=== PATIENT | female | born 1955 | race Caucasian/White ===

== ENCOUNTER 2018-07-22 16:25 | Inpatient (IN) ==
--- NOTE | 2018-07-22 18:05 | Emergency Department Note ---
Disposition Clinical Impression: Acute kidney injury Cellulitis Qualifiers: Site of cellulitis: extremity Site of cellulitis of extremity: lower extremity Laterality: left Qualified Code(s): L03.116 - Cellulitis of left lower limb DVT (deep venous thrombosis) Qualifiers: DVT location: lower extremity Affected thrombotic vein of extremity: iliac Chronicity: unspecified Laterality: left Qualified Code(s): I82.422 - Acute embolism and thrombosis of left iliac vein Disposition: Admitted As Inpatient Condition: Good Referrals: Joaquim Nesbitt MD [Primary Care Provider] - Forms: ED Satisfaction Letter Lower Extremity Injury HPI - General Chief Complaint: ED Extremity Injury, Lower Stated Complaint: DVT Time Seen by Provider: 07/22/18 17:42 Source: patient, family Limitations: no limitations Nursing Notes Reviewed: Yes Vital Signs Reviewed: Yes - History of Present Illness HPI Narrative: 62-year-old female with past medical history including crush injury of the left lower extremity with Tete filter placed in the , presenting with chief complaint of erythema and swelling of her left knee since yesterday. Patient states a week ago she had a fall. She has a drop foot and her left leg from a crush injury and she hit a cement step and fell hitting her left knee. She went to her primary care physician secondary to swelling. Left tib-fib x- rays were negative for fracture or dislocation. She did have lower extremity venous Doppler that was positive for acute partially occlusive thrombus in the left distal iliac and left lesser saphenous veins. She was started on Xarelto which she states her compliance. She states for the last couple days she complains of chills and sweats. She also complains of increasing left knee pain. This morning she woke up with erythema and worsening swelling of the left knee. Patient's states that when she came down for breakfast she was feeling out of it and was dropping things with bilateral upper extremities. No slurred speech or facial droop. No unilateral weakness or paresthesias. She went back to sleep for a couple of hours and symptoms resolved. She saw her primary care physician who recommended the patient come to the ER for further evaluation. Patient denies abrasions, recent bites, chest pain, shortness of breath, nausea, vomiting. She does states she was recently diagnosed with acute bronchitis and was treated with a Z-Vincent and Solu-Medrol. - Related Data Home Medications Medication Instructions Recorded Confirmed Calcium Carbonate/Vitamin D3 1,000 mg PO DAILY 05/06/15 03/06/18 [Calcium 500 mg Chewable Tablet] Citalopram Hydrobromide 40 mg PO DAILY 05/06/15 03/06/18 [Citalopram HBr] Levothyroxine [Synthroid] 112 mcg PO DAILY 05/06/15 03/06/18 Omeprazole [PriLOSEC] 20 mg PO BID PRN 05/06/15 03/06/18 Gabapentin [Neurontin] 300 mg PO TID 04/01/16 03/06/18 Lidocaine Patch [Lidoderm 5% patch] 1 each TP Q12H PRN 04/01/16 03/06/18 Cyclobenzaprine HCl 5 mg PO TID PRN 02/07/17 03/06/18 Pravastatin Sodium [Pravachol] 20 mg PO DAILY 02/07/17 03/06/18 Vitamin B Complex [B Complex] 1 tab PO DAILY 02/07/17 03/06/18 Doxepin HCl 10 mg PO DAILY 03/06/18 03/06/18 Fluticasone Propionate Nasal 50 mcg NS DAILY PRN 03/06/18 03/06/18 [Flonase] Metformin HCl [Metformin ER 500 mg PO BID 03/06/18 03/06/18 Gastric] Previous Rx's Medication Instructions Recorded Oxycodone HCl/Acetaminophen 1 each PO Q6HR 3 Days #12 tablet 03/06/18 [Percocet 5-325 mg Tablet] Allergies Allergy/AdvReac Type Severity Reaction Status Date / Time codeine AdvReac Hives Verified 07/22/18 17:57 All systems ED: reviewed and negative except as stated. Review of Systems: As Per HPI Constitutional: Reports: fever, chills Cardiovascular: Denies: chest pain, palpitations Respiratory: Denies: cough, dyspnea Gastrointestinal: Denies: abdominal pain, nausea, diarrhea Genitourinary: Denies: dysuria Musculoskeletal: Reports: other (left knee pain and swelling). Denies: back pain Neurological: Reports: confusion. Denies: headache, weakness, paresthesias Past Medical History - Past Medical History Medical history: Reports: COPD, DVT, thyroid disease, other Surgical history: Reports: hysterectomy, other Psychiatric history: Reports: anxiety, depression, panic disorder PHLEBOTOMIST ASSOCIATE history: Reports: no PHLEBOTOMIST ASSOCIATE history - Social History Smoking Status: Current every day smoker Smokeless Tobacco Status: No Alcohol use: Reports: none Drug use: Reports: none Physical Exam - General Limitations: no limitations General appearance: alert, in no apparent distress - Head Head exam: atraumatic, normocephalic - Eye Eye exam: Present: normal appearance, PERRL, EOMI - ENT ENT exam: normal exam, normal oropharynx, mucous membranes moist - Neck Neck exam: Present: normal inspection, trachea midline - Chest Chest inspection: Present: normal inspection, symmetric chest wall rise - Respiratory Respiratory exam: Present: normal lung sounds bilaterally. Absent: respiratory distress, wheezes - Cardiovascular Cardiovascular exam: Present: regular rate, normal rhythm, normal heart sounds, other (bilateral dorsalis pedis pulses palpable and equal) - Abdominal Exam Abdominal exam: Present: soft, Non-Tender. Absent: distention - Extremities Exam Extremities exam: Present: normal capillary refill, other (left knee with blanching erythema, hot to touch. Moderate swelling with tenderness. ) - Neurological Exam Neurological exam: Present: alert, oriented X3, CN II-XII intact. Absent: motor sensory deficit - Expanded Neurological Exam Speech: Present: fluid speech Cerebellar function: finger to nose: Normal Motor strength - LUE: 5/5 Motor strength - RUE: 5/5 Motor strength - LLE: 5/5 Motor strength - RLE: 5/5 Upper motor neuron exam: yessi neglect: Absent bilaterally Sensory exam upper extremity: light touch: Normal Sensory exam lower extremity: light touch: Normal - Psychiatric Psychiatric exam: Present: normal affect, normal mood - Skin Skin exam: Present: dry, intact Course Vital Signs Temperature 99.7 F H 07/22/18 16:42 Pulse Rate 84 07/22/18 16:42 Respiratory Rate 14 07/22/18 16:42 Blood Pressure 104/64 07/22/18 16:42 O2 Sat by Pulse Oximetry 94 07/22/18 16:42 Temperature 99.7 F H 07/22/18 16:42 Pulse Rate 82 07/22/18 17:56 Respiratory Rate 20 07/22/18 17:56 Blood Pressure 112/69 07/22/18 17:56 O2 Sat by Pulse Oximetry 95 07/22/18 17:56 Oxygen Delivery Oxygen Delivery Room Air Extremity Injury, Lower - MDM Narrative Medical decision making narrative: Patient with diagnosis of DVT one week ago who is now on Xarelto. Couple day history of chills and sweats and 2 day history of worsening left lower extremity swelling and erythema to the left knee. The knee has blanching erythema and is very hot to touch compared to the other extremity. Dorsalis pedis pulse is palpable. 2+ pitting edema of the left lower extremity. Concern for cellulitis. We obtain lower extremity Doppler to reevaluate for any new DVT or progressive worsening of her distal iliac clot. She does have worsening symptoms with worsening swelling and pain. There is also concern as she has a distal iliac DVT and will require further evaluation. We will also obtain lactate, blood cultures, CBC and BMP,PT/INR. We will also obtain CT head without contrast to evaluate her confusion that she had this morning and to rule out an intracranial hemorrhage to anticoagulate the patient. 19:45 Labs and imaging reviewed. X-ray shows nonspecific soft tissue edema most pronounced within the lateral and prepatellar soft tissues which is concerning for cellulitis. No acute osseous abnormality. CT head shows remote ischemic infarcts. She had a remote TBI many years ago. Lower extremity Doppler shows unchanged DVTs. Elevated white blood count of 27. Lactate is normal. Will give IV vancomycin. We will initiate IV fluids as she has acute kidney injury as well. We will admit the patient. Do not suspect the patient's knee requires arthrocentesis at this time as there is erythema and cellulitis and soft tissue swelling however no loculated area of fluid collection. CRP elevated at 291. We will consult hospitalist for admission. 20:00 Discussed with Hospitalist, Dr. Figueredo, who accepts admission. Will add zosyn to patient's antibiotic therapy. - Medical Records Medical records reviewed: Yes I reviewed the patient's medical records. - Lab Data Lab results reviewed: Yes I reviewed the patient's lab results. Result diagrams: 07/22/18 18:40 07/22/18 18:40 Lab Results 07/22/18 07/22/18 07/22/18 Range/Units 18:40 18:40 18:40 WBC 27.2 H (4.3-11.1) K/mcL RBC 3.94 (3.82-4.97) M/mcL Hgb 12.5 (11.5-15.4) g/dL Hct 36.9 (35.3-44.9) % MCV 93.7 (83.0-100.0) fL MCH 31.7 (28.0-33.3) pg MCHC 33.9 (31.6-35.5) g/dL RDW 14.5 (11.5-14.5) % Plt Count 171 (140-400) K/mcL MPV 10.8 (9.4-12.4) fL Immature Gran % 1.0 (0-4) % Seg Neutrophils % 82.9 % Lymphocytes % 10.2 % Monocytes % 5.6 % Eosinophils % 0.1 % Basophils % 0.2 % Neutrophils # 22.6 H (1.6-8.9) K/mcL Lymphocytes # 2.8 (0.6-4.6) K/mcL Monocytes # 1.5 H (0.0-1.3) K/mcL Eosinophils # 0.0 (0.0-0.6) K/mcL Basophils # 0.1 (0.0-0.2) K/mcL Platelet Estimate Normal (Normal) PT (9.4-12.1) Seconds INR APTT (26.0-36.0) Seconds Sodium 134 L (136-145) mEq/L Potassium 3.7 (3.5-5.1) mEq/L Chloride 96 L (98-107) mEq/L Carbon Dioxide 28 (23-29) mEq/L BUN 26 H (8-23) mg/dL Creatinine 1.35 H (0.60-1.20) mg/dL Est GFR ( Amer) 48 L (> 60) Est GFR (Non-Af Amer) 40 L (> 60) BUN/Creatinine Ratio 19 (6-26) Glucose 143 H (70-105) mg/dL Calculated Osmolality 285 (280-300) Lactic Acid 1.6 (0.5-2.2) mmol/L Calcium 9.4 (8.6-10.3) mg/dL C-Reactive Protein 291 H (Less than 10) mg/L 07/22/18 Range/Units 18:40 WBC (4.3-11.1) K/mcL RBC (3.82-4.97) M/mcL Hgb (11.5-15.4) g/dL Hct (35.3-44.9) % MCV (83.0-100.0) fL MCH (28.0-33.3) pg MCHC (31.6-35.5) g/dL RDW (11.5-14.5) % Plt Count (140-400) K/mcL MPV (9.4-12.4) fL Immature Gran % (0-4) % Seg Neutrophils % % Lymphocytes % % Monocytes % % Eosinophils % % Basophils % % Neutrophils # (1.6-8.9) K/mcL Lymphocytes # (0.6-4.6) K/mcL Monocytes # (0.0-1.3) K/mcL Eosinophils # (0.0-0.6) K/mcL Basophils # (0.0-0.2) K/mcL Platelet Estimate (Normal) PT 18.6 H (9.4-12.1) Seconds INR 1.7 APTT 27.5 (26.0-36.0) Seconds Sodium (136-145) mEq/L Potassium (3.5-5.1) mEq/L Chloride (98-107) mEq/L Carbon Dioxide (23-29) mEq/L BUN (8-23) mg/dL Creatinine (0.60-1.20) mg/dL Est GFR ( Amer) (> 60) Est GFR (Non-Af Amer) (> 60) BUN/Creatinine Ratio (6-26) Glucose (70-105) mg/dL Calculated Osmolality (280-300) Lactic Acid (0.5-2.2) mmol/L Calcium (8.6-10.3) mg/dL C-Reactive Protein (Less than 10) mg/L - Radiology Data Radiology results reviewed: Yes I reviewed the patient's radiology results. Head CT 07/22/18 18:32 IMPRESSION: Multiple remote infarcts as above. No acute disease. D/ / Tam Sepulveda MD / Tam Sepulveda MD Interpreting Provider: Tam Sepulveda MD Knee X-Ray 07/22/18 18:53 IMPRESSION: 1. Nonspecific soft tissue edema most pronounced within the lateral and prepatellar soft tissues. Correlate clinically for cellulitis. 2. No acute osseous abnormality identified. D/ / Hiram Henderson MD / Hiram Henderson MD Interpreting Provider: Hiram Henderson MD
--- NOTE | 2018-07-22 18:48 | Emergency Department Note ---
Disposition Clinical Impression: Acute kidney injury Cellulitis Qualifiers: Site of cellulitis: extremity Site of cellulitis of extremity: lower extremity Laterality: left Qualified Code(s): L03.116 - Cellulitis of left lower limb DVT (deep venous thrombosis) Qualifiers: DVT location: lower extremity Affected thrombotic vein of extremity: iliac Chronicity: unspecified Laterality: left Qualified Code(s): I82.422 - Acute embolism and thrombosis of left iliac vein Disposition: Admitted As Inpatient Referrals: Joaquim Nesbitt MD [Primary Care Provider] - Forms: ED Satisfaction Letter General Adult HPI - General Chief complaint: ED Extremity Injury, Lower Stated complaint: DVT Time Seen by Provider: 07/22/18 17:42 Source: patient, family Limitations: no limitations - History of Present Illness Pain Scale: 8 - Related Data Home Medications Medication Instructions Recorded Confirmed Calcium Carbonate/Vitamin D3 1,000 mg PO DAILY 05/06/15 03/06/18 [Calcium 500 mg Chewable Tablet] Citalopram Hydrobromide 40 mg PO DAILY 05/06/15 03/06/18 [Citalopram HBr] Levothyroxine [Synthroid] 112 mcg PO DAILY 05/06/15 03/06/18 Omeprazole [PriLOSEC] 20 mg PO BID PRN 05/06/15 03/06/18 Gabapentin [Neurontin] 300 mg PO TID 04/01/16 03/06/18 Lidocaine Patch [Lidoderm 5% patch] 1 each TP Q12H PRN 04/01/16 03/06/18 Cyclobenzaprine HCl 5 mg PO TID PRN 02/07/17 03/06/18 Pravastatin Sodium [Pravachol] 20 mg PO DAILY 02/07/17 03/06/18 Vitamin B Complex [B Complex] 1 tab PO DAILY 02/07/17 03/06/18 Doxepin HCl 10 mg PO DAILY 03/06/18 03/06/18 Fluticasone Propionate Nasal 50 mcg NS DAILY PRN 03/06/18 03/06/18 [Flonase] Metformin HCl [Metformin ER 500 mg PO BID 03/06/18 03/06/18 Gastric] Previous Rx's Medication Instructions Recorded Oxycodone HCl/Acetaminophen 1 each PO Q6HR 3 Days #12 tablet 03/06/18 [Percocet 5-325 mg Tablet] Allergies Allergy/AdvReac Type Severity Reaction Status Date / Time codeine AdvReac Hives Verified 07/22/18 17:57 Past Medical History - Past Medical History Medical history: Reports: COPD, DVT, thyroid disease, other Surgical history: Reports: hysterectomy, other Psychiatric history: Reports: anxiety, depression, panic disorder FACULTY SUPPORT COORDINATOR history: Reports: no FACULTY SUPPORT COORDINATOR history - Social History Smoking Status: Current every day smoker Smokeless Tobacco Status: No Alcohol use: Reports: none Drug use: Reports: none Physical Exam - General Limitations: no limitations General appearance: alert, in no apparent distress Course Vital Signs Temperature 99.7 F H 07/22/18 16:42 Pulse Rate 84 07/22/18 16:42 Respiratory Rate 14 07/22/18 16:42 Blood Pressure 104/64 07/22/18 16:42 O2 Sat by Pulse Oximetry 94 07/22/18 16:42 Temperature 99.7 F H 07/22/18 16:42 Pulse Rate 82 07/22/18 17:56 Respiratory Rate 20 07/22/18 17:56 Blood Pressure 112/69 07/22/18 17:56 O2 Sat by Pulse Oximetry 95 07/22/18 17:56 Oxygen Delivery Oxygen Delivery Room Air Medical Decision Making - MDM Narrative Medical decision making narrative: Concerns for a left knee cellulitis. Elevated white count greater than 20,000. We have ordered IV vancomycin and blood cultures. We repeated a duplex Doppler of the left lower extremity to be sure that the clot has not propagated from the iliac vein. There is been no movement or change with this. Obviously at this point where more concerned for a cellulitis. The anterior left knee and lateral portion her also red to touch. It appears that this is more superficial based on physical exam findings. She is able to move the knee but states it feels tight secondary to the swelling on the anterior portion of the knee. Left knee plain films were unremarkable for any acute fracture. We did do a CT of her head secondary to this confusion this morning and that was also nonacute. Patient will be admitted to the hospitalist. - Medical Records Medical records reviewed: Yes I reviewed the patient's medical records. - Lab Data Lab results reviewed: Yes I reviewed the patient's lab results. Result diagrams: 07/22/18 18:40 07/22/18 18:40 Lab Results 07/22/18 07/22/18 07/22/18 Range/Units 18:40 18:40 18:40 WBC 27.2 H (4.3-11.1) K/mcL RBC 3.94 (3.82-4.97) M/mcL Hgb 12.5 (11.5-15.4) g/dL Hct 36.9 (35.3-44.9) % MCV 93.7 (83.0-100.0) fL MCH 31.7 (28.0-33.3) pg MCHC 33.9 (31.6-35.5) g/dL RDW 14.5 (11.5-14.5) % Plt Count 171 (140-400) K/mcL MPV 10.8 (9.4-12.4) fL Immature Gran % 1.0 (0-4) % Seg Neutrophils % 82.9 % Lymphocytes % 10.2 % Monocytes % 5.6 % Eosinophils % 0.1 % Basophils % 0.2 % Neutrophils # 22.6 H (1.6-8.9) K/mcL Lymphocytes # 2.8 (0.6-4.6) K/mcL Monocytes # 1.5 H (0.0-1.3) K/mcL Eosinophils # 0.0 (0.0-0.6) K/mcL Basophils # 0.1 (0.0-0.2) K/mcL Platelet Estimate Normal (Normal) ESR (0-15) mm/hr PT (9.4-12.1) Seconds INR APTT (26.0-36.0) Seconds Sodium 134 L (136-145) mEq/L Potassium 3.7 (3.5-5.1) mEq/L Chloride 96 L (98-107) mEq/L Carbon Dioxide 28 (23-29) mEq/L BUN 26 H (8-23) mg/dL Creatinine 1.35 H (0.60-1.20) mg/dL Est GFR ( Amer) 48 L (> 60) Est GFR (Non-Af Amer) 40 L (> 60) BUN/Creatinine Ratio 19 (6-26) Glucose 143 H (70-105) mg/dL Calculated Osmolality 285 (280-300) Lactic Acid 1.6 (0.5-2.2) mmol/L Calcium 9.4 (8.6-10.3) mg/dL C-Reactive Protein 291 H (Less than 10) mg/L 07/22/18 07/22/18 Range/Units 18:40 18:40 WBC (4.3-11.1) K/mcL RBC (3.82-4.97) M/mcL Hgb (11.5-15.4) g/dL Hct (35.3-44.9) % MCV (83.0-100.0) fL MCH (28.0-33.3) pg MCHC (31.6-35.5) g/dL RDW (11.5-14.5) % Plt Count (140-400) K/mcL MPV (9.4-12.4) fL Immature Gran % (0-4) % Seg Neutrophils % % Lymphocytes % % Monocytes % % Eosinophils % % Basophils % % Neutrophils # (1.6-8.9) K/mcL Lymphocytes # (0.6-4.6) K/mcL Monocytes # (0.0-1.3) K/mcL Eosinophils # (0.0-0.6) K/mcL Basophils # (0.0-0.2) K/mcL Platelet Estimate (Normal) ESR 54 H (0-15) mm/hr PT 18.6 H (9.4-12.1) Seconds INR 1.7 APTT 27.5 (26.0-36.0) Seconds Sodium (136-145) mEq/L Potassium (3.5-5.1) mEq/L Chloride (98-107) mEq/L Carbon Dioxide (23-29) mEq/L BUN (8-23) mg/dL Creatinine (0.60-1.20) mg/dL Est GFR ( Amer) (> 60) Est GFR (Non-Af Amer) (> 60) BUN/Creatinine Ratio (6-26) Glucose (70-105) mg/dL Calculated Osmolality (280-300) Lactic Acid (0.5-2.2) mmol/L Calcium (8.6-10.3) mg/dL C-Reactive Protein (Less than 10) mg/L - Radiology Data Radiology results reviewed: Yes I reviewed the patient's radiology results. Critical Care Time Critical Care Time: No Attestation Statement - Attestation Attestation: I examined this patient and my medical decision-making was reviewed with the Resident Physician. I agree with the documented findings, disposition and treatment plan as described except to the extent set forth below. 62-year-old female presents emergency room for left lower external he pain. She specifically, complaining of left knee pain and redness and swelling. She states she fell a little over a month ago injuring her left lower extremity. Has been having persistent pain. Had ultrasound done last week in the emergency room which showed a acute left distal iliac DVT. She does have a history of a Tete filter. She has not been on any blood thinners. She was started on Xarelto. She has noticed increased redness and swelling involving the left knee. Concerns for possible cellulitis at this point. Patient apparently also had a moment of confusion and was not acting herself earlier this morning. She was unable to hold utensils in either hand. No history of strokes or TIAs. Also do a CT of the brain to rule out any acute pathology. GCS is 15 at this time. She has no focal motor or sensory deficits. On exam, her left knee is very red and tender and swollen. It is tender anteriorly as well as posteriorly.
[2018-07-22 18:55] LABS: Basophils # 0.1 K/mcL (0.0-0.2); Basophils % 0.2 %; Eosinophils % 0.1 %; Hematocrit 36.9 % (35.3-44.9); Hemoglobin 12.5 g/dL (11.5-15.4); Lymphocytes # 2.8 K/mcL (0.6-4.6); Lymphocytes % 10.2 %; Mean Corpuscular HGB Conc 33.9 g/dL (31.6-35.5); Mean Corpuscular Hemoglobin 31.7 pg (28.0-33.3); Mean Corpuscular Volume 93.7 fL (83.0-100.0); Mean Platelet Volume 10.8 fL (9.4-12.4); Monocytes # 1.5 K/mcL (0.0-1.3); Monocytes % 5.6 %; Neutrophils # 22.6 K/mcL (1.6-8.9); Platelet Count 171 K/mcL (140-400); Red Blood Count 3.94 M/mcL (3.82-4.97); Red Cell Distribution Width 14.5 % (11.5-14.5); Segmented Neutrophils % 82.9 %
[2018-07-22 19:04] LABS: INR 1.7; Prothrombin Time 18.6 Seconds (9.4-12.1)
[2018-07-22 19:07] LABS: Activated Partial Thrombo Time 27.5 Seconds (26.0-36.0)
[2018-07-22 19:22] LABS: Calcium 9.4 mg/dL (8.6-10.3); Potassium 3.7 mEq/L (3.5-5.1)
[2018-07-22 19:23] LABS: Platelet Estimate Normal (Normal)
[2018-07-22] MEDS ORDERED: 0.9 % Sodium Chloride 1,000 ML IVC ONE (19:34)
[2018-07-22] MEDS ORDERED: Piperacillin/Tazobactam 3.375 GM in 0.9 % Sodium Chloride Mini Bag 100 ML IVPB ONE (19:59)
[2018-07-22] MEDS ORDERED: Naloxone 0.4 MG/ML INJ IVP PRN (22:09)
[2018-07-22] MEDS ORDERED: 0.9 % Sodium Chloride 1,000 ML IVC SCH (22:15)
[2018-07-22] MEDS ORDERED: *HR* Heparin 5,000 UNIT/ML VIAL IVP PRN ×2 (22:25)
[2018-07-22] MEDS ORDERED: *HR* Heparin 5,000 UNIT/ML VIAL IVP ONE (22:25)
[2018-07-22] MEDS ORDERED: Heparin 25,000 UNIT/500 ML D5W 25,000 UNIT/500 ML BAG IVC SCH (22:30)
--- NOTE | 2018-07-22 22:55 | Internal Med History&Physical ---
<Marc Paula R - Last Filed: 07/23/18 01:19> Date of Encounter: 07/23/18 Time of Encounter: 21:00 Internal Medicine - H&P: HPI Chief complaint: Leg pain and swelling Admitted From: Emergency Dept Plans for Post Hospital Care: Home History of present illness: Ms. Olmstead is a 62 year old female with a history significant for COPD, hypothyroidism, depression, remote traumatic brain and LLE injuries with prior DVT. Presenting for evaluation of left leg swelling, erythema, and pain. She reports tripping on her sidewalk last week secondary to chronic left foot drop. She was later evaluated by her outpatient PCP and Doppler revealed DVT of the left iliac distally. She was placed on Xarelto proximally 5 days ago. Of note patient had a DVT in the left lower extremity in approximately 1989 after a traumatic crush injury, due to anticoagulation contraindication a IVC filter was placed which remains in place. Patient further reports 3 days of increased swelling and erythema particularly in the left knee region. Associated subjective fevers as well as nausea without vomiting. Denies diarrhea, chills, chest pain, shortness of breath, dizziness, abdominal pain. No prior history of cellulitis. ED evaluation was significant for an elevated WBC of 27,000 as well as elevated serum creatinine of 1.35. Vital signs within normal limits and lactate of 1.6. CT of the head was obtained revealing remote encephalomalacia from prior TBI, no acute bleeding or abnormality. 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 At the time my evaluation patient is in a [id number] amount of pain which is most localized to the left lower extremities region of erythema and swelling. Patient has no other acute complaints at this time. Past Med Surg Social Fam HX - Past Medical History Medical history: COPD, DVT, thyroid disease, other Additional medical history: Left Leg DVT. Left BBB Psychiatric history: anxiety, depression, panic disorder - Past Surgical History Surgical History: hysterectomy, other Additional surgical history: Tete Filter. colonoscopy. septoplasty. Right shoulder. Left CTR. left knee. neck - Social History Smoking Status: Current every day smoker Smokeless Tobacco Status: No Alcohol use: none Drug use: none Internal Medicine - H&P: Meds Calcium Carbonate/Vitamin D3 [Calcium 500 mg Chewable Tablet] 500 mg PO BID 11/21/15 [History] Citalopram Hydrobromide [Citalopram HBr] 40 mg PO DAILY 05/06/15 [History] Levothyroxine [Synthroid] 112 mcg PO DAILY 05/06/15 [History] Omeprazole [PriLOSEC] 20 mg PO BID PRN 05/06/15 [History] Gabapentin [Neurontin] 300 mg PO TID 04/01/16 [History] Lidocaine Patch [Lidoderm 5% patch] 1 each TP Q12H PRN 04/01/16 [History] Pravastatin Sodium [Pravachol] 20 mg PO DAILY 02/07/17 [History] Vitamin B Complex [B Complex] 1 tab PO DAILY 02/07/17 [History] Doxepin HCl 10 mg PO HS 03/06/18 [History] Metformin HCl [Metformin ER Gastric] 500 mg PO BID 03/06/18 [History] Nicotine Polacrilex [Nicotine Lozenge] 2 mg BC Q2H PRN 07/22/18 [History] Rivaroxaban [Xarelto] 15 mg PO BID 07/22/18 [History] Allergy/AdvReac Type Severity Reaction Status Date / Time codeine AdvReac Hives Verified 07/22/18 17:57 All Systems PM: A 10-system review of systems was performed and is negative for pertinent findings except as documented above in the HPI. - Constitutional Constitutional: fever(s), no chills, no weakness - EENT Eyes: no blurry vision, no diplopia Nose, mouth and throat: no dysphagia, no mouth pain, no neck pain - Cardiovascular Cardiovascular ROS IM: no chest pain, no diaphoresis, no dyspnea, no lightheadedness, no palpitations, no syncope - Respiratory Respiratory: no cough, no hemoptysis, no wheezing, no chest congestion, no excessive phlegm production - Gastrointestinal Gastrointestinal: nausea, no abdominal pain, no change in bowel habits, no diarrhea, no hematemesis, no hematochezia, no melena, no vomiting - Genitourinary Genitourinary: no dysuria, no flank pain, no hematuria - Musculoskeletal Musculoskeletal ROS IM: arthralgias, limited range of motion (Due to pain and swelling) - Integumentary Integumentary IM: erythema, no non-healing lesions, no skin ulcer - Neurological Neurological ROS: no confusion, no dizziness, no focal weakness, no frequent falls - Psychiatric Psychiatric: anxiety, depression - Hematologic/Lymphatic Hematologic/Lymphatic: no easy bleeding, no easy bruising - Constitutional Vitals: Temp Pulse Resp BP Pulse Ox 102.8 F H 98 20 106/61 94 07/22/18 22:30 07/22/18 22:30 07/22/18 22:30 07/22/18 22:30 07/22/18 22:30 Exam: General: Patient is seated upright in bed, mild to moderate pain is evident without significant distress HEENT: Atraumatic, normocephalic, pupils PERRLA with EOMI, anicteric sclera, moist mucous membranes Neck: Soft, full range of motion Cardiovascular: Regular rate and rhythm, no murmurs noted Respiratory: Clear to auscultations are bilateral lung camacho, no crackles, wheezing, rhonchi Abdomen: Obese, soft, nontender, nondistended, bowel sounds present and normoactive, no suprapubic or CVA tenderness Extremities: Erythema with irregular margins in the region of the left knee and extending distally to the level of the ankle. Associated swelling with tense skin. Painful and warm to palpation. No palpable lymphadenopathy. No purulenc e or evidence of fluid collection. Remains neurovascularly intact throughout extremities. Neuro: Alert and oriented to person, place, and situation. Visible left foot drop with 3/5 strength. General Strength is diminished in the left lower extremity secondary to pain. Psych: Good fund of knowledge, answers questions appropriately, affect appears mildly blunted. Internal Med - H&P Results - Labs CBC & Chem 7: 07/22/18 18:40 07/22/18 18:40 Labs: Short CBC 07/22/18 Range/Units 18:40 WBC 27.2 H (4.3-11.1) K/mcL Hgb 12.5 (11.5-15.4) g/dL Hct 36.9 (35.3-44.9) % Plt Count 171 (140-400) K/mcL Neutrophils # 22.6 H (1.6-8.9) K/mcL BMP 07/22/18 18:40 Sodium 134 L Potassium 3.7 Chloride 96 L Carbon Dioxide 28 BUN 26 H Creatinine 1.35 H Glucose 143 H Calcium 9.4 - Impressions ITS Impressions Head CT 07/22/18 18:32 IMPRESSION: Multiple remote infarcts as above. No acute disease. D/ / Tam Sepulveda MD / Tam Sepulveda MD Interpreting Provider: Tam Sepulveda MD Knee X-Ray 07/22/18 18:53 IMPRESSION: 1. Nonspecific soft tissue edema most pronounced within the lateral and prepatellar soft tissues. Correlate clinically for cellulitis. 2. No acute osseous abnormality identified. D/ / Hiram Henderson MD / Hiram Henderson MD Interpreting Provider: Hiram Henderson MD - Assessment and plan (1) Cellulitis Current Visit: Yes Status: Acute Assessment and plan: Nonpurulent cellulitis of the left lower extremity, associated scrapes the anterior garcia secondary to recent fall Elevated WBC 27K, Vital signs within normal limits Plan: Continue antibiotics coverage with Vancomycin and Zosyn, de-escalate as appropr iate Blood cultures obtained by ED and pending Repeat AM CBC Qualifiers: Site of cellulitis: extremity Site of cellulitis of extremity: lower e xtremity Laterality: left Qualified Code(s): L03.116 - Cellulitis of left lower limb (2) DVT (deep venous thrombosis) Current Visit: Yes Status: Acute Assessment and plan: DVT with prior history of DVT in 1989 and IVC filter done [facility] Placed on xarelto ~5 days ago Preliminary Dopplar report suggesting 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 Qualifiers: DVT location: lower extremity Affected thrombotic vein of extremity: iliac Chronicity: unspecified Laterality: left Qualified Code(s): I82.422 - Acute embolism and thrombosis of left iliac vein (3) Acute kidney injury Current Visit: Yes Status: Acute Assessment and plan: CARTER with elevated serum creatinine of 1.35 Baseline is < 1.0 Patient endorsing poor oral intake due to general malaise Plan: IVF for total of 2L repeat AM BMP (4) Falls Current Visit: Yes Status: Acute Assessment and plan: Falls at home secondary to chronic left foot drop Likely contributing to current presentation of cellulitis Patient reports working with PT in the past Plan: Consider PT evaluation for recommendations Qualifiers: Encounter type: sequela Qualified Code(s): W19.XXXS - Unspecified fall, sequela (5) Hypothyroid Current Visit: Yes Status: Acute Assessment and plan: Continue home levothyroxine of 112 micrograms daily Qualifiers: Hypothyroidism type: unspecified Qualified Code(s): E03.9 - Hypothyroidism, unspecified (6) COPD (chronic obstructive pulmonary disease) Current Visit: Yes Status: Acute Assessment and plan: No home medications, lungs are clear to auscultation, saturating well on room air, continue to monitor. Qualifiers: COPD type: unspecified COPD Qualified Code(s): J44.9 - Chronic obstructive pulmonary disease, unspecified (7) Anxiety and depression Current Visit: Yes Status: Acute Assessment and plan: Continue home medications doxepin and citalopram - Time Spent With Patient Total time spent is greater than 50% in coordination of care (as documented) at patient's floor/unit and/or counseling patient: <Dariel Figueredo - Last Filed: 07/23/18 03:19> Date of Encounter: 07/23/18 Time of Encounter: 03:12 Past Med Surg Social Fam HX - Additional Family History Additional family history: no FH DVT/PE - Constitutional Constitutional: fever(s), no night sweats - EENT Ears: no ear pain, no tinnitus Nose, mouth and throat: no nasal congestion, no sore throat - Cardiovascular Cardiovascular ROS IM: no chest pain, no dyspnea - Respiratory Respiratory: no cough, no chest congestion - Gastrointestinal Gastrointestinal: nausea, no abdominal pain, no diarrhea, no hematemesis, no hematochezia, no melena, no vomiting - Genitourinary Genitourinary: no dysuria, no flank pain, no hematuria - Musculoskeletal Musculoskeletal ROS IM: arthralgias - Integumentary Integumentary IM: erythema - Neurological Neurological ROS: no dizziness, no focal weakness, no frequent falls, no headache(s) - Psychiatric Psychiatric: anxiety - Endocrine Endocrine IM: no polydipsia, no polyuria - Allergic/Immunologic Allergic/Immunologic: no GI upset with certain foods - Constitutional Vitals: Temp Pulse Resp BP Pulse Ox 100.5 F H 98 20 106/61 94 07/23/18 03:05 07/22/18 22:30 07/22/18 22:30 07/22/18 22:30 07/22/18 22:30 General appearance: Present: cooperative, A&O X 3, pleasant, no acute distress - Head Head exam: Present: normal inspection - Eye Eye exam: Present: PERRL. Absent: scleral icterus - ENT ENT exam: Present: mucous membranes dry, normal exam - Neck Neck exam general surgery: Present: supple - Respiratory Respiratory exam: Present: CTAB. Absent: chest wall tenderness, rales, respiratory distress, rhonchi, wheezes - Cardiovascular Cardiovascular exam: Present: +S1, +S2. Absent: diastolic murmur, systolic murmur - GI/Abdominal GI/Abdominal exam: Present: normal bowel sounds, soft. Absent: tenderness - Extremities Exam Extremities exam: Present: calf tenderness (LLE), radial pulses palpable and symmetrical. Absent: mottling Additional comments: asymmetrical swelling LLE>> RLE; LLE cellulitis - Neurological Exam Neurological exam: Present: alert, CN II-XII intact, oriented X3, strengths equal and symetr throughout - Skin Skin exam: Present: dry, intact, warm Internal Med - H&P Results - Labs CBC & Chem 7: 07/22/18 18:40 07/22/18 18:40 Labs: Short CBC 07/22/18 Range/Units 18:40 WBC 27.2 H (4.3-11.1) K/mcL Hgb 12.5 (11.5-15.4) g/dL Hct 36.9 (35.3-44.9) % Plt Count 171 (140-400) K/mcL Neutrophils # 22.6 H (1.6-8.9) K/mcL BMP 07/22/18 18:40 Sodium 134 L Potassium 3.7 Chloride 96 L Carbon Dioxide 28 BUN 26 H Creatinine 1.35 H Glucose 143 H Calcium 9.4 - Impressions ITS Impressions Head CT 07/22/18 18:32 IMPRESSION: Multiple remote infarcts as above. No acute disease. D/ / Tam Sepulveda MD / Tam Sepulveda MD Interpreting Provider: Tam Sepulveda MD Knee X-Ray 07/22/18 18:53 IMPRESSION: 1. Nonspecific soft tissue edema most pronounced within the lateral and prepatellar soft tissues. Correlate clinically for cellulitis. 2. No acute osseous abnormality identified. D/ / Hiram Henderson MD / Hiram Henderson MD Interpreting Provider: Hiram Henderson MD - Assessment and plan (1) Cellulitis Current Visit: Yes Status: Acute Qualifiers: Site of cellulitis: extremity Site of cellulitis of extremity: lower extremity Laterality: left Qualified Code(s): L03.116 - Cellulitis of left lower limb (2) DVT (deep venous thrombosis) Current Visit: Yes Status: Acute Qualifiers: DVT location: lower extremity Affected thrombotic vein of extremity: iliac Chronicity: unspecified Laterality: left Qualified Code(s): I82.422 - Acute embolism and thrombosis of left iliac vein (3) Acute kidney injury Current Visit: Yes Status: Acute (4) Falls Current Visit: Yes Status: Acute Qualifiers: Encounter type: sequela Qualified Code(s): W19.XXXS - Unspecified fall, sequela (5) COPD (chronic obstructive pulmonary disease) Current Visit: Yes Status: Acute Qualifiers: COPD type: unspecified COPD Qualified Code(s): J44.9 - Chronic obstructive pulmonary disease, unspecified (6) Hypothyroid Current Visit: Yes Status: Acute Qualifiers: Hypothyroidism type: unspecified Qualified Code(s): E03.9 - Hypothyroidism, unspecified (7) Anxiety and depression Current Visit: Yes Status: Acute - Time Spent With Patient Total time spent is greater than 50% in coordination of care (as documented) at patient's floor/unit and/or counseling patient: - Attending Attestation I discussed the patient [place], past medical history, review of systems, lab data, imaging data, and exam findings with Dr. Rodríguez. I then saw and examined patient independently. Patient has some mild pain in her left leg. She admits to having had a recent fall and prior history of DVT as well as a recent DVT. She has never been on chronic anticoagulation since her first DVT. She does, however, have an IVC filter in place. Given the fact that she has a filter in place, I suspect she will likely need long-term/lifelong anticoagulation. It may be worth consulting vascular surgery to discuss long-term anti-coagulation after this current DVT resolves. I suspect that her IVC filter is not removable given that it has been present for over 20 years now. Regarding her cellulitis, we will keep on antibiotics and monitor clinically. I did ask her and her nurse to keep her leg elevated while in bed. We will monitor clinically and adjust medications/antibiotics as necessary to treat her underlying cellulitis. Other than my comments above and noted exam findings, I agree with Dr. Rodríguez's assessment and plan.
[2018-07-23] MEDS: Acetaminophen 325 MG TABLET PO PRN ×2 (00:44→08:30)
[2018-07-23 06:32] LABS: Mean Corpuscular HGB Conc 33.5 g/dL (31.6-35.5)
[2018-07-23 06:33] LABS: Hemoglobin 11.4 g/dL (11.5-15.4); Mean Corpuscular Hemoglobin 31.7 pg (28.0-33.3); Mean Corpuscular Volume 94.4 fL (83.0-100.0); Mean Platelet Volume 10.5 fL (9.4-12.4); Platelet Count 152 K/mcL (140-400); Red Cell Distribution Width 14.4 % (11.5-14.5)
[2018-07-23 06:42] LABS: BUN/Creatinine Ratio 18 (6-26); Blood Urea Nitrogen 20 mg/dL (8-23); Calcium 8.7 mg/dL (8.6-10.3); Carbon Dioxide 23 mEq/L (23-29); Chloride 102 mEq/L (98-107); Glucose 128 mg/dL (70-105); Osmolality,Calculated 278 (280-300); Potassium 3.7 mEq/L (3.5-5.1); Sodium 132 mEq/L (136-145); eGFR For Non-African Americans 50 (> 60)
[2018-07-23 07:15] LABS: Lymphocytes # 1.9 K/mcL (0.6-4.6); Monocytes # 0.3 K/mcL (0.0-1.3); Neutrophils # 24.3 K/mcL (1.6-8.9); Platelet Estimate Normal (Normal)
[2018-07-23] MEDS ORDERED: Piperacillin/Tazobactam 3.375 GM in 0.9 % Sodium Chloride Mini Bag 100 ML IVPB SCH (08:00)
--- NOTE | 2018-07-23 08:35 | Event Note ---
Date of Encounter: 07/23/18 Time of Encounter: 08:32 She was seen and examined. Patient admitted by one of my colleagues overnight for left lower extremity extremity cellulitis. She had also acute kidney injury. Kidney numbers are improving. Was put on IV vancomycin and Zosyn. Still has leukocytosis. Still having temperatures up to 100.6. MAXIMUM TEMPERATURE was 102.8 yesterday around 10 PM. Patient has significantly swollen left knee and vomiting erythema. X-ray showed nonspecific soft tissue edema most pronounced within the lateral and prepatellar soft tissues. Patient has a recent diagnosis of left lower extremity acute DVT and is on Xarelto but has been put on heparin drip since admission Would consult orthopedics for possible septic joint/arthrocentesis needs. May need further imaging studies but will await ortho to see. Continue current antibiotics. Continue heparin drip for now in case patient needs any procedures.
[2018-07-23] MEDS ORDERED: Gabapentin 300 MG CAPSULE PO SCH (09:00)
--- NOTE | 2018-07-23 09:18 | Internal Med Progress Note ---
Hospitalist Progress Note - Encounter Date of Encounter: 07/23/18 Time of Encounter: 09:18 - Subjective Interval History: Ms. Olmstead was seen and examined at the bedside. She reports pain in her left lower extremity, but states that she feels fine otherwise. Her , who is present at the bedside reports that the erythema and swelling has worsened since admission, and now extends further up her leg. Patient was noted to be confused at the time of admission; however, this appears to have resolved fully as of the time of evaluation. Patient denies any acute complaints or concerns at this time. - Exam Vitals: Temp Pulse Resp BP Pulse Ox 100.6 F H 81 18 112/67 94 07/23/18 06:34 07/23/18 06:34 07/23/18 06:34 07/23/18 06:34 07/23/18 06:34 Exam: GENERAL: Pleasant adult female lying in bed. She does not appear to be in acute distress. HEENT: Atraumatic and normocephalic. CARDIOVASCULAR: Regular rate and rhythm. S1 and S2 present. No murmurs, gallops, or rubs appreciated. RESPIRATORY: Clear to auscultation bilaterally. Chest rises and falls symmetri shwetha with respiration. No accessory muscle use noted. GASTROINTESTINAL: Abdomen is soft, nontender, nondistended. EXTREMITIES: Bilateral LE are edematous, with increased redness on the left that extends proximally past the knee joint. Left lower extremity is tight and painful to light touch. Swelling present around the left knee.t. NEUROLOGIC: Alert and oriented x3. Patient is cooperative with exam and answers questions appropriately. No apparent focal deficits present. - Assessment and Plan (1) Necrotizing subcutaneous infection Current Visit: Yes Status: Acute Assessment and Plan: Unknown source. Patient did have a recent fall during which she injured her left knee, and reports that symptoms began shortly after that. Patient was noted to be febrile while in the ED, with overnight Tmax of 102.8. AM laboratory studies demonstrated WBC count of 26.4, with 8% bands. ESR and CRP are noted to be elevated, at 54 and 291, respectively. Left lower extremity CT was significant for soft tissue edema and a 6.1 x 1.3 x 11.1 cm fluid collection within the anterolateral prepatellar soft tissues. Patient underwent I/D of prepatellar abscess by orthopedic surgery this afternoon. Per operative note, grossly purulent fluid and necrotic fat were present in the wound. - Broad spectrum antibiotic coverage with vancomycin, zosyn, and clindamycin. - Infectious disease consult placed for assistance with further antibiotic management. - Follow on culture results, with antibiotic adjustments as indicated. - Repeat and trend CBC, ESR, and CRP. - Wound care per surgery recommendations. - Close monitoring for signs of worsening or spread of infection. (2) Cellulitis Current Visit: Yes Status: Acute Assessment and Plan: Secondary to necrotizing soft tissue abscess. - Vincent boundaries appropriately and monitor for signs of spreading infection. - Further plan as above. (3) DVT (deep venous thrombosis) Current Visit: Yes Status: Acute Assessment and Plan: Prior history of DVT with placement of an irretrievable IVC filter in 1989. Patient was evaluated by her PCP approximately 1 week ago, and was sent for a lower extremity doppler exam on 07/16/2018, which was significant for left acute DVT in distal iliac vein and superficial thrombosis in lesser saphenous vein. She was started on xarelto for anticoagulation approximately one week ago. Ms. Olmstead reported worsening redness and swelling of her knee despite anticoagulation, with associated fevers, nausea, and confusion. Repeat LE dopper performed yesterday noted chronic DVT of the left distal iliac vein and superficial thrombosis in the lesser saphenous vein. Patient was initially started on a heparin gtt at the time of admission; however this has been discontinued due to need for I/D of prepatellar abscess. Drain is present at surgical site, increasing the risk of bleeding from this area if heparin gtt is continued. - Vascular surgery consult pending for management recommendations. (4) Acute kidney injury Current Visit: Yes Status: Acute Assessment and Plan: Likely secondary to sepsis from necrotizing subcutaneous abscess. Creatinine at the time of admission was elevated at 1.35. Patient received 2 1-L fluid boluses overnight, and morning laboratory studies showed improved creatinine of 1.10. - Continue IVF hydration. - Monitor creatinine and renal function via AM metabolic panels. (5) Hypothyroid Current Visit: Yes Status: Acute Assessment and Plan: - Continue home dose of levothyroxine 112mcg. DVT Prophylaxis: Initially on heparin gtt, which was discontinued due to need for I/D of necrotizing abscess. Patient does have an IVC filter in place; however, this was done in 1989, and it is unclear if this continues to provide sufficient protection against development of pulmonary embolus. Vascular surgery evaluation and recommendations are currently pending. - Time Spent with Patient Total time spent is greater than 50% in coordination of care (as documented) at patient's floor/unit and/or counseling patient: Internal Medicine: Result - Labs CBC & Chem 7: 07/23/18 06:10 07/23/18 06:10 Labs: Short CBC 07/22/18 07/23/18 Range/Units 18:40 06:10 WBC 27.2 H 26.4 H (4.3-11.1) K/mcL Hgb 12.5 11.4 L (11.5-15.4) g/dL Hct 36.9 34.0 L (35.3-44.9) % Plt Count 171 152 (140-400) K/mcL Neutrophils # 22.6 H 24.3 H (1.6-8.9) K/mcL BMP 07/22/18 07/23/18 18:40 06:10 Sodium 134 L 132 L Potassium 3.7 3.7 Chloride 96 L 102 Carbon Dioxide 28 23 BUN 26 H 20 Creatinine 1.35 H 1.10 Glucose 143 H 128 H Calcium 9.4 8.7 - ABG Interpretation ABG results: PT/INR, D-dimer PT 18.6 Seconds (9.4-12.1) H 07/22/18 18:40 - Impressions Impressions Head CT 07/22/18 18:32 IMPRESSION: Multiple remote infarcts as above. No acute disease. D/ / Tam Sepulveda MD / Tam Sepulveda MD Interpreting Provider: Tam Sepulveda MD Knee X-Ray 07/22/18 18:53 IMPRESSION: 1. Nonspecific soft tissue edema most pronounced within the lateral and prepatellar soft tissues. Correlate clinically for cellulitis. 2. No acute osseous abnormality identified. D/ / Hiram Henderson MD / Hiram Henderson MD Interpreting Provider: Hiram Henderson MD Consult Discharge Plan - Plan Referrals: Joaquim Nesbitt MD [Primary Care Provider] - (2) Cellulitis Qualifiers: Site of cellulitis: extremity Site of cellulitis of extremity: lower extremity Laterality: left Qualified Code(s): L03.116 - Cellulitis of left lower limb (3) DVT (deep venous thrombosis) Qualifiers: DVT location: lower extremity Affected thrombotic vein of extremity: iliac Chronicity: unspecified Laterality: left Qualified Code(s): I82.422 - Acute embolism and thrombosis of left iliac vein (5) Hypothyroid Qualifiers: Hypothyroidism type: unspecified Qualified Code(s): E03.9 - Hypothyroidism, unspecified
[2018-07-23] MEDS ORDERED: Isovue-370 500 ML BOTTLE IVP ONE (11:29)
--- NOTE | 2018-07-23 12:36 | Orthopedic Consult Note ---
Date of Encounter: 07/23/18 Time of Encounter: 12:33 Assessment and Plan (1) Cellulitis Current Visit: Yes Status: Acute I did have a long discussion with the patient regarding the diagnosis. She has an extensive abscess in the subcutaneous space of the left anterior knee region. Given the CT findings as well as the severely elevated white blood cell count and CRP my concern is for a necrotizing soft tissue infection. I do not believe that this involves the knee joint. My recommendation is for immediate incision, drainage, irrigation, and debridement of the left lower extremity with IV antibiotics. I will add clindamycin to her antibiotic regimen. We will discontinue the heparin for now for this surgery. The risks discussed included but were not limited to stiffness, bleeding, infection, blood clots, damage to neurovascular structures, tendons, ligaments, and bone. Also discussed was the risk of continued symptoms and possible need for further procedures. I did discuss the anesthesia risks including stroke, heart attack, and . I did discuss the reasonable, foreseeable postoperative course with the patient. The patient did wish to proceed and consent was obtained. I have reviewed each of the pertinent components of this chart and any other pertinent medical component(s) including but not limited to pertinent applicat ion of the chief complaint, history of present illness, current medication, medical history, allergies, family history, medical history, surgical history, social history, review of systems, vital signs, and any other portion of the pertinent patient medical record directly or indirectly involved with this patient care that is pertinent based on my medical decision process. RAISA Rinaldi Qualifiers: Site of cellulitis: extremity Site of cellulitis of extremity: lower extremity Laterality: left Qualified Code(s): L03.116 - Cellulitis of left lower limb History of Present Illness HPI: Ms. Olmstead is a 62 year old female currently admitted to the hospitalist with a DVT. Of note she had a remote traumatic injury to the left leg causing a foot drop and significantly decreased use of the left foot. About 5 weeks ago she did have a fall and scraped her knee. For the last 3-5 days she has had worsening pain and swelling of the anterior knee region. She was admitted after going to the ER on being found to have a DVT and cellulitis. She has currently been on Xarelto and is now on heparin, vancomycin, and Zosyn. I was asked to evaluate the patient due to concerns for septic left knee. On my evaluation the patient complains of isolated anterior knee pain radiating proximally and distally with worsening redness and swelling. No numbness, tingling, or any other associated signs or symptoms. Pain is worse with any movement of the leg and better with rest. No feelings of illness currently. No other associated signs or symptoms or modifying factors. Past Med Surg Social Fam HX - Past Medical History Medical history: COPD, DVT, thyroid disease, other Additional medical history: Left Leg DVT. Left BBB Psychiatric history: anxiety, depression, panic disorder - Past Surgical History Surgical History: hysterectomy, other Additional surgical history: [place] Filter. colonoscopy. septoplasty. Right shoulder. Left CTR. left knee. neck - Social History Smoking Status: Current every day smoker Packs per day: 1 Smokeless Tobacco Status: No Alcohol use: none Drug use: none Medications and Allergies Calcium Carbonate/Vitamin D3 [Calcium 500 mg Chewable Tablet] 500 mg PO BID 05/06/15 [History] Citalopram Hydrobromide [Citalopram HBr] 40 mg PO DAILY 05/06/15 [History] Levothyroxine [Synthroid] 112 mcg PO DAILY 05/06/15 [History] Omeprazole [PriLOSEC] 20 mg PO BID PRN 05/06/15 [History] Gabapentin [Neurontin] 300 mg PO TID 04/01/16 [History] Lidocaine Patch [Lidoderm 5% patch] 1 each TP Q12H PRN 04/01/16 [History] Pravastatin Sodium [Pravachol] 20 mg PO DAILY 02/07/17 [History] Vitamin B Complex [B Complex] 1 tab PO DAILY 02/07/17 [History] Doxepin HCl 10 mg PO HS 03/06/18 [History] Metformin HCl [Metformin ER Gastric] 500 mg PO BID 03/06/18 [History] Nicotine Polacrilex [Nicotine Lozenge] 2 mg BC Q2H PRN 07/22/18 [History] Rivaroxaban [Xarelto] 15 mg PO BID 07/22/18 [History] Allergy/AdvReac Type Severity Reaction Status Date / Time codeine AdvReac Hives Verified 07/22/18 17:57 All Systems Reviewed: Constitutional -The patient denies any fevers, chills, or feelings of illness Neurologic -The patient denies any numbness, tingling, or burning pains Physical Exam - Constitutional Vitals: Temp Pulse Resp BP Pulse Ox 98.8 F 95 18 112/62 94 07/23/18 10:52 07/23/18 10:52 07/23/18 10:52 07/23/18 10:52 07/23/18 10:52 CONSTITUTIONAL -Vitals reviewed -The patient is well developed, well nourished, well groomed PSYCHIATRIC -Fully alert and oriented -Pleasant mood LEFT UPPER EXTREMITY Inspection shows that the skin and the soft tissue envelope are intact with focal cellulitis anterior to the knee spreading proximally into the lateral thigh. Tender fluctuance noted in the prepatellar area. No sensation of crepitance. Minimal induration. No significant pain with gentle passive motion of the knee, though this does cause referred anterior knee pain. The foot is in significant equinus from her prior injury. Swelling to the leg though the compartments are soft and compressible. She is not able to wiggle her toes which is her baseline. The foot is sensate and well-perfused. Diagnostic Imaging: I did personally review and interpret x-rays of the left knee from yesterday do not show any fractures or dislocations. CT scan of the left lower extremity with contrast shows a large abscess in the subcutaneous space with extensive surrounding cellulitis. Results - Labs Result Diagrams: 07/23/18 06:10 07/23/18 06:10 Labs: Abnormal lab results WBC 26.4 K/mcL (4.3-11.1) H 07/23/18 06:10 RBC 3.60 M/mcL (3.82-4.97) L 07/23/18 06:10 Hgb 11.4 g/dL (11.5-15.4) L 07/23/18 06:10 Hct 34.0 % (35.3-44.9) L 07/23/18 06:10 Band Neutrophils % 8.0 % (0-4) H 07/23/18 06:10 Neutrophils # 24.3 K/mcL (1.6-8.9) H 07/23/18 06:10 ESR 54 mm/hr (0-15) H 07/22/18 18:40 PT 18.6 Seconds (9.4-12.1) H 07/22/18 18:40 Sodium 132 mEq/L (136-145) L 07/23/18 06:10 Est GFR (Non-Af Amer) 50 (> 60) L 07/23/18 06:10 Glucose 128 mg/dL (70-105) H 07/23/18 06:10 Calculated Osmolality 278 (280-300) L 07/23/18 06:10 C-Reactive Protein 291 mg/L (Less than 10) H 07/22/18 18:40 H & H 07/22/18 07/23/18 Range/Units 18:40 06:10 Hgb 12.5 11.4 L (11.5-15.4) g/dL Hct 36.9 34.0 L (35.3-44.9) % All other labs normal. Consult Discharge Plan - Plan Referrals: Joaquim Nesbitt MD [Primary Care Provider] -
--- NOTE | 2018-07-23 12:47 | Anesthesia Evaluation PreOp ---
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 (complex regional pain syndrome lower extremities/chronic pain, anxiety depression) Other Medical History: Diabetes Type II, Thyroid (hypo), GERD Anesthesia History: No Prior Anesthetic Complications, Past Anesthesia : No Alcohol Use: none Drug use: none Medications and Allergies Calcium Carbonate/Vitamin D3 [Calcium 500 mg Chewable Tablet] 500 mg PO BID 05/06/15 [History] Citalopram Hydrobromide [Citalopram HBr] 40 mg PO DAILY 05/06/15 [History] Levothyroxine [Synthroid] 112 mcg PO DAILY 05/06/15 [History] Omeprazole [PriLOSEC] 20 mg PO BID PRN 05/06/15 [History] Gabapentin [Neurontin] 300 mg PO TID 04/01/16 [History] Lidocaine Patch [Lidoderm 5% patch] 1 each TP Q12H PRN 04/01/16 [History] Pravastatin Sodium [Pravachol] 20 mg PO DAILY 02/07/17 [History] Vitamin B Complex [B Complex] 1 tab PO DAILY 02/07/17 [History] Doxepin HCl 10 mg PO HS 03/06/18 [History] Metformin HCl [Metformin ER Gastric] 500 mg PO BID 03/06/18 [History] Nicotine Polacrilex [Nicotine Lozenge] 2 mg BC Q2H PRN 07/22/18 [History] Rivaroxaban [Xarelto] 15 mg PO BID 07/22/18 [History] Allergy/AdvReac Type Severity Reaction Status Date / Time codeine AdvReac Hives Verified 07/22/18 17:57 - Meds/Allergy Pre-op Review Medications Reviewed: Yes Allergies Reviewed: Yes Beta Blockers on Current Med List: No Anesthesia Results - Labs 07/23/18 06:10 07/23/18 06:10 - Imaging EKG: report reviewed (SINUS RHYTHM LEFT BUNDLE BRANCH BLOCK, present 09/2016) Anesthesia Exam Vital Signs/O2 Sat/Glucose, Most Recent Temp Pulse Resp BP Pulse Ox 98.8 F 95 18 112/62 94 07/23/18 10:52 07/23/18 10:52 07/23/18 10:52 07/23/18 10:52 07/23/18 10:52 Weight: 91 kg NPO (# of Hours): > 6 hr - HEENT Pupil (Motor): Pupils equal Mallampati: II Teeth: Edentulous Oral Opening: Greater than 3 - AIR SHOVEL OPERATOR LOC: Oriented AIR SHOVEL OPERATOR Motor: Normal RUE, Normal LUE, Normal RLE, Normal LLE, Normal Face AIR SHOVEL OPERATOR Sensory: Normal: RUE, LUE, RLE, LLE, Face - Cardiac Rhythm: Regular Murmur: None - Pulmonary Breath Sounds: bilateral Clear Respiratory Effort: Symmetrical Anesthesia Assess/Plan ASA Score: 3 Level of consciousness: Cooperative, Oriented Anesthetic Plan: General Monitoring Plan: Standard Monitors Recovery Plan: PACU
[2018-07-23] MEDS ORDERED: Clindamycin 900 MG/50 ML 900 MG/50 ML IV.SOLN IVPB ONE (13:00)
[2018-07-23] MEDS ORDERED: Ondansetron 4 MG/2 ML VIAL ONE (13:42)
[2018-07-23] MEDS ORDERED: *HR* FentaNYL (PF) 100 MCG/2 ML VIAL ONE (13:42)
[2018-07-23] MEDS ORDERED: Dexamethasone 4 MG/ML VIAL ONE (13:42)
[2018-07-23] MEDS ORDERED: Lidocaine -MPF 2% 2 ML VIAL ONE (13:42)
[2018-07-23] MEDS ORDERED: *HR* Propofol 200 MG/20 ML VIAL IVP ONE (13:42)
[2018-07-23] MEDS ORDERED: *HR* Succinylcholine 200 MG/10 ML VIAL IVP ONE (13:42)
--- NOTE | 2018-07-23 14:12 | Orthopedic Operative Note ---
Date of procedure: 07/23/18 Procedure: OPERATIVE REPORT SURGEON: Joey Quiroz MD PREOPERATIVE DIAGNOSIS: Left lower extremity necrotizing subcutaneous abscess POSTOPERATIVE DIAGNOSIS: Same PROCEDURE: Incision, drainage, irrigation, and debridement of the left lower extremity including subcutaneous tissue ANESTHESIA: Gen. anesthesia SPECIMENS: Necrotic fat for culture as well as swabs PREOPERATIVE NOTE The surgical plan was reviewed with the patient. The risks, benefits, alternatives, and potential complications of this procedure were discussed with the patient including injury to veins, arteries, nerves, tendons, ligaments, and bone. Also discussed were the risks of infection, bleeding, pain, blood clots, the possible need for a blood transfusion, the possible need for further procedures, heart attack, stroke, and . Additional risks include the need for further procedures. All of this was explained in simple terms, and the patient verbalized understanding and wished to proceed. Consent was given to proceed with surgery. PROCEDURE: The patient was seen in the preoperative holding area where the identify and the consent were confirmed. The left lower extremity was marked. Final questions were answered. The patient was brought back to the operating room and placed supine on the operating room table. A huddle was performed with the patient and all vital surgical team members confirming patient identity, the correct procedure, and the correct operative site. General anesthesia was administered. The operative extremity was prepped and draped in the usual sterile fashion. A surgical time out was performed immediately preceding the incision with all personnel in the operating room to confirm patient identity, the correct operative site and extremity, correct radiographic studies, availability of appropriate surgical equipment, and agreement on the planned procedure. The tourniquet was inflated without exsanguination. A 10 cm longitudinal incision was made over the area of maximal fluctuance which is on the anterolateral aspect of the knee. Dissection proceeded carefully through the subcutaneous tissue and quickly the abscess was encountered, draining copious amounts of grossly purulent fluid which was swabbed for culture. After the fluid was evacuated there was noted to be necrotic fat within the wound which was sharply excised and sent for culture as well. 3 L of saline was flushed through the wound. The wound was closed with 3 loose interrupted nylon stitches over a [place] drain. A soft, sterile dressing was applied. The instrument, sponge, and needle counts were correct after wound closure. POST OPERATIVE PLAN: We will continue vancomycin, Zosyn, and clindamycin in the meantime. Infectious disease team has been consulted to assist in evaluation and antibiotic selection. I did discuss with Dr. Parker regarding the heparin and we will hold for now given the open wound. She does have an IVC filter. Repeat labs in the morning and clinical reevaluation. Was there an assistant professor of physics present: No Estimated blood loss (cc): 10
[2018-07-23] MEDS ORDERED: Acetaminophen IV 1,000 MG/100 ML INFUS..BTL IVPB ONE (14:13)
[2018-07-23] MEDS ORDERED: *HR* Morphine 2 MG/ML SYRINGE IVP PRN (14:13)
--- NOTE | 2018-07-23 14:35 | Anesthesia Evaluation Post Op ---
Date of Encounter: 07/23/18 Time of Encounter: 14:34 - Vital Signs Vital Signs: Vital Signs/O2 Sat/Glucose, Most Recent Temp Pulse Resp BP Pulse Ox 98.3 F 87 18 130/61 93 07/23/18 14:08 07/23/18 14:28 07/23/18 14:28 07/23/18 14:28 07/23/18 14:28 - Lungs Lungs: Clear Ascult./Percussion - Airway Airway: Non-obstructed - Cardiovascular Regular Rate - Mental Status Mental Status: Alert & Oriented, Answers Appropriately - Pain Pain Scale: 0 Pain Scale used: Numeric (1 - 10) - Nausea Vomiting Nausea Vomiting: Not Present - Hydration Hydration: Ice chips Notes: 07/23/18 14:34 Pt has fully recovered from anesthetic. VSS. Neuro exam intact. - Discharge PostOp Status: Transfer Patient to floor
[2018-07-23] MEDS ORDERED: Naloxone 0.4 MG/ML INJ IVP PRN (14:57)
[2018-07-23] MEDS ORDERED: Acetaminophen 325 MG TABLET PO PRN (14:57)
[2018-07-23] MEDS ORDERED: Ondansetron 4 MG/2 ML VIAL IVP ONE (14:57)
--- NOTE | 2018-07-23 15:35 | Infectious Disease Consult ---
Date of Encounter: 07/24/18 Time of Encounter: 15:27 Assessment and Plan (1) Sepsis Status: Acute Assessment and plan: 4 sirs criteria with CARTER secondary to Skin and soft tissue infection Qualifiers: Sepsis type: sepsis due to unspecified organism Qualified Code(s): A41.9 - Sepsis, unspecified organism (2) Cellulitis of left lower extremity without foot Status: Acute Assessment and plan: s/p fall 5 weeks prior with trauma to LLE CT notes 6.1 x 1.3 x 11.1 cm fluid collection within the anterolateral prepatellar soft tissues. No internal foci of gas. with soft tissue edema s/p I&D by Dr. Quiroz 07/23/18; intra op copious purulent culture results pending patient on vancomycin and zosyn agree with current regimen for now, will tailor antibiotics based on culture results goal vancomycin trough around 10-15 duration of treatment (3) Diabetes mellitus type 2 in obese Status: Acute (4) History of DVT in adulthood Status: Acute Infectious Disease HPI - Data of Consult Patient: new to practice Consult date: 07/23/18 Requesting Physician: Troy Bowers Primary Care Provider: Joaquim Nesbitt MD - Consult Narrative Reason for consult: "necrotizing soft tissue infection of the left knee" History of present illness: Ms. Olmstead is a 62 year old female Patient is a 62-year-old woman who presented to [place] 07/22/2018 with left leg pain and swelling, we are consulted 07/23/2018 for necrotizing fasciitis of the left lower extremity. Patient is a 62-year-old woman with past medical history significant for COPD, DVT, thyroid disease, chronic back pain status post a stimulator placement about 2 years ago with history of crushing left lower extremity injury about 20 years ago when a horse fell on her with multiple issues including a drop foot presented to [place] with left lower extremity pain and swelling. Most of the information was taken from the who is a nurse for 45 years and very well informed of the patient's medical issues. Apparently the patient about 5 weeks ago had a fall on the cement stairs going up to the house. Patient does have recurrence falls because of her drop foot. Initially she was doing okay but then the pain and the swelling started a few days prior to admission. tells me that the patient was also having some confusion, weakness, fevers and chills but no rigors. Patient denied any headache, denied any loss of consciousness, denied any nausea or vomiting, no diarrhea no constipation and no urinary symptoms. Patient presented to [place] for evaluation. Patient's rest of her social history is positive for tobacco use about 1 pack a day, does not drink alcohol does not use occasional drugs denies history of infection including hepatitis HIV tuberculosis etc. No travel set of the [place]. [place] alone [place] the [place] the country and have one small dog no other animals. Since admission, patient has been febrile with a MAXIMUM TEMPERATURE of 102.8 F, tachycardia, tachypnea. Presenting WBC of 27,000 with 83% neutrophils no bands. Patient was also in acute kidney injury with creatinine of 1.35. ESR and CRP were [address] of the left lower extremity reveals is 6.11.311.1 cm fluid collection within the anterolateral prepatellar soft tissue. No internal foci of gas. Patient was evaluated by orthopedics who was concerned for necrotizing soft tissue infection and took the patient for incision and drainage. Intra-Op operation now reveals copious amounts of grossly purulent fluid with necrotic fat noted to it. Patient was aggressively I&D and flushed with 3 L of saline. Intra-Op cultures were sent. Patient was started on accommodation vancomycin, Zosyn and clindamycin and we were asked to evaluate the patient's make further recommendations. A/P: 1. severe sepsis 4 sirs criteria with CARTER secondary to Skin and soft tissue infection 2. LLE cellulitis/abscess; causative organism unclear s/p fall 5 weeks prior with trauma to LLE CT notes 6.1 x 1.3 x 11.1 cm fluid collection within the anterolateral prepatellar soft tissues. No internal foci of gas. with soft tissue edema s/p I&D by Dr. Quiroz 07/23/18; intra op copious purulent culture results pending patient on vancomycin and zosyn agree with current regimen for now, will tailor antibiotics based on culture results goal vancomycin trough around 10-15 duration of treatment 3. Diabetes mellitus type 2 adequately controlled [id number] 4. History of DVT CC: Troy Bowers Past Med Surg Social Fam HX - Past Medical History Medical history: COPD, DVT, thyroid disease, other Additional medical history: Left Leg DVT. Left BBB Psychiatric history: anxiety, depression, panic disorder - Past Surgical History Surgical History: hysterectomy, other Additional surgical history: [place] Filter. colonoscopy. septoplasty. Right shoulder. Left CTR. left knee. neck - Social History Smoking Status: Current every day smoker Packs per day: 1 Smokeless Tobacco Status: No Alcohol use: none Drug use: none Infectious Disease-CN:Meds Calcium Carbonate/Vitamin D3 [Calcium 500 mg Chewable Tablet] 500 mg PO BID 05/06/15 [History] Citalopram Hydrobromide [Citalopram HBr] 40 mg PO DAILY 05/06/15 [History] Levothyroxine [Synthroid] 112 mcg PO DAILY 05/06/15 [History] Omeprazole [PriLOSEC] 20 mg PO BID PRN 05/06/15 [History] Gabapentin [Neurontin] 300 mg PO TID 04/01/16 [History] Lidocaine Patch [Lidoderm 5% patch] 1 each TP Q12H PRN 04/01/16 [History] Pravastatin Sodium [Pravachol] 20 mg PO DAILY 02/07/17 [History] Vitamin B Complex [B Complex] 1 tab PO DAILY 02/07/17 [History] Doxepin HCl 10 mg PO HS 03/06/18 [History] Metformin HCl [Metformin ER Gastric] 500 mg PO BID 03/06/18 [History] Nicotine Polacrilex [Nicotine Lozenge] 2 mg BC Q2H PRN 07/22/18 [History] Rivaroxaban [Xarelto] 15 mg PO BID 07/22/18 [History] Allergy/AdvReac Type Severity Reaction Status Date / Time codeine AdvReac Hives Verified 07/22/18 17:57 Review of systems: 10 point ROS of system done, negative other for what's mentioed in the hPI Exam - Constitutional Vitals: Temp Pulse Resp BP Pulse Ox 98.6 F 81 18 120/75 91 07/23/18 15:02 07/23/18 15:02 07/23/18 15:02 07/23/18 15:02 07/23/18 15:02 General appearance: cooperative, no acute distress, no febrile - Head Head exam: Present: atraumatic, normocephalic - Eye Eye exam: Present: PERRL - ENT ENT exam: Present: mucous membranes dry, normal oropharynx - Neck Neck exam: Present: full ROM. Absent: meningismus - Respiratory Respiratory exam: Present: wheezes. Absent: accessory muscle use, rhonchi - Cardiovascular Cardiovascular exam: Present: RRR, +S2 - GI/Abdominal GI/Abdominal exam: Present: normal bowel sounds, soft. Absent: tenderness - Extremities Exam Additional comments: Left lower extremity surgically wrapped. Just came out of surgery unable to assess. - Neurological Exam Neurological exam: Present: alert, oriented X3 Infectious Disease CN: Results - Labs CBC & Chem 7: 07/24/18 03:49 07/24/18 03:49 Cultures: Cultures 07/22/18 18:41 Blood Culture - Preliminary Peripheral Venipuncture Culture is incubating and being continuously monitored for growth. Final report to follow. 07/22/18 18:40 Blood Culture - Preliminary Peripheral Venipuncture Culture is incubating and being continuously monitored for growth. Final report to follow. Consult Discharge Plan - Plan Referrals: Joaquim Nesbitt MD [Primary Care Provider] -
[2018-07-23] MEDS: Gabapentin 300 MG CAPSULE PO SCH ×2 (15:47→21:24)
[2018-07-23] MEDS ORDERED: Clindamycin 900 MG/50 ML 900 MG/50 ML IV.SOLN IVPB SCH (16:00)
[2018-07-23] MEDS ORDERED: Dextrose Gel 15 GM/37.5 ML TUBE PO PRN ×2 (16:08)
[2018-07-23] MEDS ORDERED: D5% in Water 1,000 ML IVC PRN (16:08)
[2018-07-23] MEDS ORDERED: *HR* Dextrose 50 % in Water (Syg) 50 ML SYRINGE IVP PRN (16:08)
--- NOTE | 2018-07-23 17:04 | Vascular/Endovasc Consult Note ---
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 It is unclear how long this has been present though it may date back to her crush injury in the . Therefore I do not recommend that the patient be placed on therapeutic doses of anticoagulation unless there is any other information about previous im aging that I'm not aware of at this time. I would recommend wherever that the patient be given prophylactic doses of either heparin or Lovenox. The compression device for the right foot may be continued while she is hospitalized. There is no restriction in regards to the DVT or superficial thrombophlebitis of the lesser saphenous vein in regards to her mobility or physical therapy following surgery. The IVC filter that was placed at [facility] in the is not a retrievable filter and so therefore it is a lifelong addition to her anatomy. Qualifiers: DVT location: lower extremity Affected thrombotic vein of extremity: iliac Chronicity: unspecified Laterality: left Qualified Code(s): I82.422 - Acute embolism and thrombosis of left iliac vein (2) Necrotizing subcutaneous infection Current Visit: Yes Status: Acute Patient is status post I&D by Dr. Thorpe of the left leg abscess earlier this afternoon. - History of Present Illness Consult date: 07/23/18 Consult reason: Left lower extremity DVT Chief complaint: Left lower extremity infection History of present illness: Ms. Olmstead is a 62 year old female Who had fallen last week and had developed a wound on her left leg. This went on to become infected and an abscess. She went to the operating room today and underwent an incision and drainage. Earlier the patient had undergone an ultrasound to evaluate the swelling in her left leg. This had demonstrated a chronic deep venous thrombosis and the left distal iliac vein and in the left lesser saphenous vein. However, the patient had had a crush injury back in the when a horse fell on her left leg. She had a number of injuries and a DVT at that time as well as apparently some type of blunt head injury. She had undergone placement of an IVC filter during her care at [facility] at that time. It is unclear how long the patient was on anticoagulation after that. She is not typically on anticoagulation and she does not have any memory of recent venous duplex scans in the past few years. She denies any new symptoms in the left lower extremity. She does have a significant foot drop but this is an old process. Past Med Surg Social Fam HX - Past Medical History Medical history: COPD, DVT, thyroid disease, other Additional medical history: Left Leg DVT. Left BBB Psychiatric history: anxiety, depression, panic disorder - Past Surgical History Surgical History: hysterectomy, other Additional surgical history: [place] Filter. colonoscopy. septoplasty. Right shoulder. Left CTR. left knee. neck - Social History Smoking Status: Current every day smoker Packs per day: 1 Smokeless Tobacco Status: No Alcohol use: none Drug use: none Medications and Allergies Calcium Carbonate/Vitamin D3 [Calcium 500 mg Chewable Tablet] 500 mg PO BID 05/06/15 [History] Citalopram Hydrobromide [Citalopram HBr] 40 mg PO DAILY 05/06/15 [History] Levothyroxine [Synthroid] 112 mcg PO DAILY 05/06/15 [History] Omeprazole [PriLOSEC] 20 mg PO BID PRN 05/06/15 [History] Gabapentin [Neurontin] 300 mg PO TID 04/01/16 [History] Lidocaine Patch [Lidoderm 5% patch] 1 each TP Q12H PRN 04/01/16 [History] Pravastatin Sodium [Pravachol] 20 mg PO DAILY 02/07/17 [History] Vitamin B Complex [B Complex] 1 tab PO DAILY 02/07/17 [History] Doxepin HCl 10 mg PO HS 03/06/18 [History] Metformin HCl [Metformin ER Gastric] 500 mg PO BID 03/06/18 [History] Nicotine Polacrilex [Nicotine Lozenge] 2 mg BC Q2H PRN 07/22/18 [History] Rivaroxaban [Xarelto] 15 mg PO BID 07/22/18 [History] Allergy/AdvReac Type Severity Reaction Status Date / Time codeine AdvReac Hives Verified 07/22/18 17:57 All Systems Review: The remainder of the systems were reviewed and are negative Exam Vital Signs, Last 4 Hours Temp Pulse Resp BP Pulse Ox 07/23/18 15:32 78 18 101/68 92 07/23/18 15:02 98.6 F 81 18 120/75 91 07/23/18 14:38 98.6 F 84 18 129/76 94 07/23/18 14:28 87 18 130/61 93 07/23/18 14:18 69 18 112/65 100 07/23/18 14:08 98.3 F 69 20 103/62 93 General: Present: Conversant, No Apparent Distress HEENT: Present: Atraumatic Neck: Absent: JVD Neuro: Present: Alert and responsive, Other (Left foot drop) Abdomen: Present: Soft, Non-tender Vascular: Present: Normal capillary refill, Color/Temperature (Her feet are warm and pink. She has 2 second capillary refill. She is status post surgery earlier today and so there was a large dressing secured with Brenton wrap that extends from the lower thigh to the upper calf in the left lower extremity.) Skin: Present: No rashes noted on visualized skin Consult Discharge Plan - Plan Referrals: Joaquim Nesbitt MD [Primary Care Provider] -
[2018-07-23] MEDS: Piperacillin/Tazobactam 3.375 GM in 0.9 % Sodium Chloride Mini Bag 100 ML IVPB SCH ×2 (17:27→23:56)
[2018-07-23] MEDS: Nicotine 21 MG PATCH.TD24 TD SCH (17:27)
[2018-07-23] MEDS: 0.9 % Sodium Chloride 1,000 ML IVC SCH (17:28)
[2018-07-23] MEDS: Insulin LISPRO 300 UNITS/3 ML VIAL SQ SCH ×2 (19:39→21:37)
[2018-07-23] MEDS: *HR* Heparin 5,000 UNIT/ML VIAL SQ SCH ×2 (19:40→23:56)
[2018-07-23] MEDS ORDERED: DOXEPIN 10MG PO SCH (21:00)
[2018-07-23] MEDS: Clindamycin 900 MG/50 ML 900 MG/50 ML IV.SOLN IVPB SCH (21:23)
[2018-07-23] MEDS: DOXEPIN 10 MG PO SCH (21:25)
[2018-07-24 04:38] LABS: Basophils % 0.1 %; Eosinophils % 0.1 %; Hematocrit 31.4 % (35.3-44.9); Hemoglobin 10.3 g/dL (11.5-15.4); Immature Granulocytes % 0.9 % (0-4); Lymphocytes # 1.2 K/mcL (0.6-4.6); Lymphocytes % 6.8 %; Mean Corpuscular HGB Conc 32.8 g/dL (31.6-35.5); Mean Corpuscular Hemoglobin 31.7 pg (28.0-33.3); Mean Corpuscular Volume 96.6 fL (83.0-100.0); Mean Platelet Volume 11.1 fL (9.4-12.4); Monocytes # 0.7 K/mcL (0.0-1.3); Monocytes % 3.9 %; Neutrophils # 15.9 K/mcL (1.6-8.9); Platelet Count 142 K/mcL (140-400); Red Blood Count 3.25 M/mcL (3.82-4.97); Red Cell Distribution Width 14.4 % (11.5-14.5); Segmented Neutrophils % 88.2 %
[2018-07-24 04:53] LABS: BUN/Creatinine Ratio 14 (6-26); Blood Urea Nitrogen 13 mg/dL (8-23); Carbon Dioxide 21 mEq/L (23-29); Chloride 112 mEq/L (98-107); Glucose 270 mg/dL (70-105); Osmolality,Calculated 298 (280-300); Potassium 3.8 mEq/L (3.5-5.1); Sodium 139 mEq/L (136-145); eGFR For Non-African Americans > 60 (> 60)
[2018-07-24] MEDS: Clindamycin 900 MG/50 ML 900 MG/50 ML IV.SOLN IVPB SCH ×3 (06:22→21:15)
[2018-07-24] MEDS: 0.9 % Sodium Chloride 1,000 ML IVC SCH ×2 (06:22→19:31)
[2018-07-24] MEDS: *HR* Heparin 5,000 UNIT/ML VIAL SQ SCH ×3 (06:22→21:15)
--- NOTE | 2018-07-24 08:30 | Orthopedics Progress Note ---
Date of Encounter: 07/24/18 Time of Encounter: 08:28 - Assessment and Plan (1) Cellulitis Current Visit: Yes Status: Acute Qualifiers: Site of cellulitis: extremity Site of cellulitis of extremity: lower extremity Laterality: left Qualified Code(s): L03.116 - Cellulitis of left lower limb Subjective Interval history: S: Resting in bed comfortably Significant improvement in the left lower extremity pain, particularly around the knee O: Afebrile on the vital signs are stable Left knee wound with bloody drainage as expected. Unrestrained is kept in place. Significant improvement in the cellulitis. No purulence. Improved motion about the left knee. She can grossly flex implant flex ankle and toes and the foot is sensate and well-perfused White blood cell count improved significantly A: Left leg infection, improving after drainage of abscess P: Continue IV antibiotics Follow-up cultures Anticipate drain removal later today or tomorrow depending on the amount of drainage ID following Objective Vital signs: Vital Signs Temp Pulse Resp BP Pulse Ox 07/24/18 06:34 97.6 F 70 16 114/66 96 07/24/18 02:58 97.5 F L 82 16 98/59 96 07/23/18 22:49 98.2 F 76 16 106/67 94 07/23/18 18:36 99.0 F 82 16 104/62 92 07/23/18 17:23 84 18 120/54 93 07/23/18 15:32 78 18 101/68 92 07/23/18 15:02 98.6 F 81 18 120/75 91 07/23/18 14:38 98.6 F 84 18 129/76 94 07/23/18 14:28 87 18 130/61 93 07/23/18 14:18 69 18 112/65 100 07/23/18 14:08 98.3 F 69 20 103/62 93 07/23/18 10:52 98.8 F 95 18 112/62 94 Intake and Output 07/23/18 07/24/18 07/24/18 23:59 07:59 15:59 Intake Total 580 / 580 1400 / 1400 Output Total 1550 / 1550 500 / 500 Balance -970 / -970 900 / 900 Intake: IV Fluids 100 / 100 1400 / 1400 0.9 % Sodium Chloride 1,000 ML 1000 / 1000 @ 100 mls/hr IVC .Q10H [facility] Rx#: [id number] Cleocin Premix 900 MG/50 ML 900 50 / 50 mg In 50 ml @ 50 mls/hr IVPB Q8H CAIL[facility] Rx#:[id number] Zosyn 3.375 GM In 0.9 % Sodium 100 / 100 100 / 100 Chloride (Mini-Bag +) 100 ML @ 25 mls/hr IVPB Q8HR CAILIN Rx#: [id number] Vancocin 1,000 MG In 0.9 % 250 / 250 Sodium Chloride 250 ML @ 167 mls/hr IVPB Q24H CAILIN Rx#: [id number] Oral 480 / 480 0 / 0 Output: Urine 1550 / 1550 500 / 500 Other: Meal Dinner Percent of Meal Consumed 75% # Voids 2 # Bowel Movements 0 Weight 92.2 kg Blood Glucose* 257 167 Patient Weight 07/24/18 23:59 Weight 92.2 kg - Labs CBC & BMP: 07/24/18 03:49 07/24/18 03:49 Labs: Abnormal lab results WBC 18.0 K/mcL (4.3-11.1) H 07/24/18 03:49 RBC 3.25 M/mcL (3.82-4.97) L 07/24/18 03:49 Hgb 10.3 g/dL (11.5-15.4) L 07/24/18 03:49 Hct 31.4 % (35.3-44.9) L 07/24/18 03:49 Band Neutrophils % 8.0 % (0-4) H 07/23/18 06:10 Neutrophils # 15.9 K/mcL (1.6-8.9) H 07/24/18 03:49 ESR 71 mm/hr (0-15) H 07/24/18 03:49 PT 18.6 Seconds (9.4-12.1) H 07/22/18 18:40 Chloride 112 mEq/L (98-107) H 07/24/18 03:49 Carbon Dioxide 21 mEq/L (23-29) L 07/24/18 03:49 Glucose 270 mg/dL (70-105) H 07/24/18 03:49 POC Glucose 167 mg/dL (70-99) H 07/24/18 07:42 Calcium 8.0 mg/dL (8.6-10.3) L 07/24/18 03:49 C-Reactive Protein 292 mg/L (Less than 10) H 07/24/18 03:49 Consult Discharge Plan - Plan Referrals: Joaquim Nesbitt MD [Primary Care Provider] -
--- NOTE | 2018-07-24 08:35 | Event Note ---
Date of Encounter: 07/24/18 Time of Encounter: 08:30 Patient was seen and examined. I agree with the progress note as written by the resident physician. Patient admitted by one of my colleagues for left lower extremity extremity cellulitis. She had acute kidney injury. This resolved now. Yesterday we ended up consulting with orthopedics due to significant left knee swelling and a CT was done which was concerning for a fluid collection. Was taken to the OR for I&D and irrigation. ID is involved and is on IV vanco/zosyn for now with cultures pending. has CRP in the 290s. Feeling well. pain is controlled. Afebrile last 24 hours. GEN: NAD CVS: RRR. S1, S2, No m/r/g RESP: CTAB ABD: Soft, NT, ND, +BS EXT: No edema. 2+ DP. Left knee is wrapped NEURO: Nonfocal c/w broad spectrum abx. f/u on ortho and ID recs Kidney function improving. Monitor electrolyts. Seen by Dr. Alcazar and no need for anticoags. Heparin drip stopped as the DVT in lower ext is chronic. On heparin SQ
--- NOTE | 2018-07-24 10:02 | Internal Med Progress Note ---
Hospitalist Progress Note - Encounter Date of Encounter: 07/24/18 Time of Encounter: 10:02 - Subjective Interval History: Ms. Olmstead was seen and examined at the bedside. She reports improvement in her lower extremity pain and swelling since returning from surgery. She denies any fevers or chills, and voices no acute complaints or concerns at this time. She states that she would love to go home soon if possible. - Exam Vitals: Temp Pulse Resp BP Pulse Ox 97.6 F 70 16 114/66 96 07/24/18 06:34 07/24/18 06:34 07/24/18 06:34 07/24/18 06:34 07/24/18 06:34 Exam: GENERAL: Pleasant adult female lying in bed. She does not appear to be in acute distress. HEENT: Atraumatic and normocephalic. CARDIOVASCULAR: Regular rate and rhythm. S1 and S2 present. No murmurs, gallops, or rubs appreciated. RESPIRATORY: Clear to auscultation bilaterally. Chest rises and falls symmetrically with respiration. No accessory muscle use noted. GASTROINTESTINAL: Abdomen is soft, nontender, nondistended. EXTREMITIES: Bilateral LE are edematous, with erythema of the left foot present. Post-surgical joshua bandage present on left leg, with improvement in swelling. NEUROLOGIC: Alert and oriented x3. Patient is cooperative with exam and answers questions appropriately. No apparent focal deficits present. - Assessment and Plan (1) Necrotizing subcutaneous infection Current Visit: Yes Status: Acute Assessment and Plan: Unknown source. Patient did have a recent fall during which she injured her left knee, and reports that symptoms began shortly after that. Patient was noted to be febrile while in the ED, with overnight Tmax of 102.8. AM laboratory studies demonstrated WBC count of 26.4, with 8% bands. ESR and CRP are noted to be elevated, at 54 and 291, respectively. Left lower extremity CT was significant for soft tissue edema and a 6.1 x 1.3 x 11.1 cm fluid collection within the anterolateral prepatellar soft tissues. Patient underwent I/D of prepatellar abscess by orthopedic surgery yesterday afternoon and appears much improved today. Morning labs today showed improvement in WBC count; however, ESR and CRP remain elevated at 71 and 292, respectively. - Broad spectrum antibiotic coverage with vancomycin, zosyn, and clindamycin. - Follow on culture results, with antibiotic adjustments as indicated. - Repeat and trend CBC, ESR, and CRP. - Wound care per surgery recommendations. - Close monitoring for signs of worsening or spread of infection. - Appreciate Infectious disease assistance with antimicrobial recommendations. (2) Cellulitis Current Visit: Yes Status: Acute Assessment and Plan: Secondary to necrotizing soft tissue abscess. - Vincent boundaries appropriately and monitor for signs of spreading infection. - Further plan as above. (3) DVT (deep venous thrombosis) Current Visit: Yes Status: Chronic Assessment and Plan: Prior history of DVT with placement of an irretrievable IVC filter in 1989. Patient was evaluated by her PCP approximately 1 week ago, and was sent for a lower extremity doppler exam on 07/16/2018, which was significant for left acute DVT in distal iliac vein and superficial thrombosis in lesser saphenous vein. She was started on xarelto for anticoagulation approximately one week ago. Ms. Olmstead reported worsening redness and swelling of her knee despite anticoagulation, with associated fevers, nausea, and confusion. Repeat LE dopper performed yesterday noted chronic DVT of the left distal iliac vein and sup erficial thrombosis in the lesser saphenous vein. Patient was initially started on a heparin gtt at the time of admission; however this has been discontinued due to need for I/D of prepatellar abscess. Drain is present at surgical site, increasing the risk of bleeding from this area if heparin gtt is continued. Per vascular surgery consult yesterday, patient has no need for therapeutic anticoagulation at this time. - Continue heparin SQ (4) Acute kidney injury Current Visit: Yes Status: Resolved (5) Hypothyroid Current Visit: Yes Status: Acute Assessment and Plan: - Continue home dose of levothyroxine 112mcg. DVT Prophylaxis: - Heparin 5000units SQ Q8H - Time Spent with Patient Total time spent is greater than 50% in coordination of care (as documented) at patient's floor/unit and/or counseling patient: Internal Medicine: Result - Labs CBC & Chem 7: 07/24/18 03:49 07/24/18 03:49 Labs: Short CBC 07/24/18 Range/Units 03:49 WBC 18.0 H (4.3-11.1) K/mcL Hgb 10.3 L (11.5-15.4) g/dL Hct 31.4 L (35.3-44.9) % Plt Count 142 (140-400) K/mcL Neutrophils # 15.9 H (1.6-8.9) K/mcL BMP 07/24/18 03:49 Sodium 139 Potassium 3.8 Chloride 112 H Carbon Dioxide 21 L BUN 13 Creatinine 0.91 Glucose 270 H Calcium 8.0 L - ABG Interpretation ABG results: PT/INR, D-dimer PT 18.6 Seconds (9.4-12.1) H 07/22/18 18:40 - Impressions Impressions Lower Extremity CT 07/23/18 11:29 IMPRESSION: No acute fracture. Soft tissue edema. 6.1 x 1.3 x 11.1 cm fluid collection within the anterolateral prepatellar soft tissues. No internal foci of gas. D/ / Supriya Gaytan MD / Supriya Gaytan MD Interpreting Provider: Supriya Gaytan MD Consult Discharge Plan - Plan Referrals: Joaquim Nesbitt MD [Primary Care Provider] - (2) Cellulitis Qualifiers: Site of cellulitis: extremity Site of cellulitis of extremity: lower extremity Laterality: left Qualified Code(s): L03.116 - Cellulitis of left lower limb (3) DVT (deep venous thrombosis) Qualifiers: DVT location: lower extremity Affected thrombotic vein of extremity: iliac Chronicity: unspecified Laterality: left Qualified Code(s): I82.422 - Acute embolism and thrombosis of left iliac vein (5) Hypothyroid Qualifiers: Hypothyroidism type: unspecified Qualified Code(s): E03.9 - Hypothyroidism, unspecified
[2018-07-24] MEDS: Insulin LISPRO 300 UNITS/3 ML VIAL SQ SCH ×4 (10:28→20:55)
[2018-07-24] MEDS: Gabapentin 300 MG CAPSULE PO SCH ×3 (10:29→21:16)
[2018-07-24] MEDS: Piperacillin/Tazobactam 3.375 GM in 0.9 % Sodium Chloride Mini Bag 100 ML IVPB SCH ×2 (10:30→17:06)
[2018-07-24] MEDS: Nicotine 21 MG PATCH.TD24 TD SCH (10:31)
--- NOTE | 2018-07-24 16:14 | Infectious Disease Progress No ---
Date of Encounter: 07/24/18 Time of Encounter: 16:12 - Assessment and Plan (1) Sepsis Current Visit: Yes Status: Acute 4 sirs criteria with CARTER secondary to Skin and soft tissue infection Qualifiers: Sepsis type: sepsis due to unspecified organism Qualified Code(s): A41.9 - Sepsis, unspecified organism (2) Cellulitis of left lower extremity without foot Current Visit: Yes Status: Acute /p fall 5 weeks prior with trauma to LLE CT notes 6.1 x 1.3 x 11.1 cm fluid collection within the anterolateral prepatellar soft tissues. No internal foci of gas. with soft tissue edema s/p I&D by Dr. Quiroz 07/23/18; intra op copious purulent ; appreciate his input from this morning's note culture results pending but Gram stain is showing many gram-positive cocci patient on vancomycin and zosyn agree with current regimen for now, will tailor antibiotics based on culture results goal vancomycin trough around 10-15 duration of treatment (3) Diabetes mellitus type 2 in obese Current Visit: Yes Status: Acute (4) History of DVT in adulthood Current Visit: Yes Status: Acute - Subjective Interval history: Patient seen and examined. Appears comfortable. Family at bedside. No acute distress. No nausea no vomiting or diarrhea. No chest pain or shortness of breath. No cough. No urinary symptoms. She was little concerned that the erythema on the left lower extremity has slightly expanded on physical exam it was really unremarkable. Infect Dis PN-Objective Data - Labs CBC & Chem 7: 07/24/18 03:49 07/24/18 03:49 Labs: Laboratory Results - last 24 hr 07/23/18 07/24/18 07/24/18 20:53 03:49 03:49 WBC 18.0 H RBC 3.25 L Hgb 10.3 L Hct 31.4 L MCV 96.6 MCH 31.7 MCHC 32.8 RDW 14.4 Plt Count 142 MPV 11.1 Immature Gran % 0.9 Seg Neutrophils % 88.2 Lymphocytes % 6.8 Monocytes % 3.9 Eosinophils % 0.1 Basophils % 0.1 Neutrophils # 15.9 H Lymphocytes # 1.2 Monocytes # 0.7 Eosinophils # 0.0 Basophils # 0.0 ESR 71 H Sodium Potassium Chloride Carbon Dioxide BUN Creatinine Est GFR ( Amer) Est GFR (Non-Af Amer) BUN/Creatinine Ratio Glucose POC Glucose 257 H Calculated Osmolality Calcium C-Reactive Protein 07/24/18 07/24/18 07/24/18 03:49 03:49 07:42 WBC RBC Hgb Hct MCV MCH MCHC RDW Plt Count MPV Immature Gran % Seg Neutrophils % Lymphocytes % Monocytes % Eosinophils % Basophils % Neutrophils # Lymphocytes # Monocytes # Eosinophils # Basophils # ESR Sodium 139 Potassium 3.8 Chloride 112 H Carbon Dioxide 21 L BUN 13 Creatinine 0.91 Est GFR ( Amer) > 60 Est GFR (Non-Af Amer) > 60 BUN/Creatinine Ratio 14 Glucose 270 H POC Glucose 167 H Calculated Osmolality 298 Calcium 8.0 L C-Reactive Protein 292 H 07/24/18 12:37 WBC RBC Hgb Hct MCV MCH MCHC RDW Plt Count MPV Immature Gran % Seg Neutrophils % Lymphocytes % Monocytes % Eosinophils % Basophils % Neutrophils # Lymphocytes # Monocytes # Eosinophils # Basophils # ESR Sodium Potassium Chloride Carbon Dioxide BUN Creatinine Est GFR ( Amer) Est GFR (Non-Af Amer) BUN/Creatinine Ratio Glucose POC Glucose 95 Calculated Osmolality Calcium C-Reactive Protein Cultures: Cultures 07/23/18 13:43 Surgical Biopsy Culture - Preliminary Left Leg 07/23/18 13:43 Wound Culture - Preliminary Left Leg Culture is incubating. 07/23/18 13:43 Anaerobic Culture - Preliminary Left Leg Culture is incubating. 07/22/18 18:41 Blood Culture - Preliminary Peripheral Venipuncture Culture is incubating and being continuously monitored for growth. Final report to follow. 07/22/18 18:40 Blood Culture - Preliminary Peripheral Venipuncture Culture is incubating and being continuously monitored for growth. Final report to follow. Exam - Constitutional Vitals: Temp Pulse Resp BP Pulse Ox 98.1 F 73 16 120/64 98 07/24/18 14:27 07/24/18 14:27 07/24/18 14:27 07/24/18 14:27 07/24/18 14:27 General appearance: no acute distress, no febrile - Head Head exam: Present: atraumatic, normocephalic - Respiratory Respiratory exam: Present: CTAB. Absent: wheezes - Cardiovascular Cardiovascular exam: Present: RRR, +S1, +S2 - GI/Abdominal GI/Abdominal exam: Present: normal bowel sounds, soft. Absent: tenderness - Extremities Exam Additional comments: Left lower extremity with salmon-colored erythema has a little bit migrated proximally. Really does not look that impressive. Patient was very anxious. - Neurological Exam Neurological exam: Present: alert, oriented X3 Consult Discharge Plan - Plan Referrals: Joaquim Nesbitt MD [Primary Care Provider] -
--- NOTE | 2018-07-24 19:46 | Orthopedics Progress Note ---
Date of Encounter: 07/24/18 Time of Encounter: 19:44 - Assessment and Plan (1) Cellulitis Current Visit: Yes Status: Acute Qualifiers: Site of cellulitis: extremity Site of cellulitis of extremity: lower extremity Laterality: left Qualified Code(s): L03.116 - Cellulitis of left lower limb Subjective Interval history: S: Resting in bed comfortably Significant improvement in the left lower extremity pain, particularly around the knee O: Afebrile on the vital signs are stable Left knee wound with minimal drainage. Judd pulled. Continued improvement in cellulitis No purulence. Improved motion about the left knee. She can grossly flex implant flex ankle and toes and the foot is sensate and w ell-perfused A: Left leg infection, improving after drainage of abscess P: Continue IV antibiotics Follow-up cultures Daily dressing changes. ID following Objective Vital signs: Vital Signs Temp Pulse Resp BP Pulse Ox 07/24/18 14:27 98.1 F 73 16 120/64 98 07/24/18 10:50 98.0 F 74 16 105/64 98 07/24/18 06:34 97.6 F 70 16 114/66 96 07/24/18 02:58 97.5 F L 82 16 98/59 96 07/23/18 22:49 98.2 F 76 16 106/67 94 Intake and Output 07/24/18 07/24/18 07/24/18 07:59 15:59 23:59 Intake Total 1450 / 1450 750 / 750 100 / 100 Output Total 500 / 500 150 / 150 Balance 950 / 950 600 / 600 100 / 100 Intake: IV Fluids 1450 / 1450 150 / 150 100 / 100 0.9 % Sodium Chloride 1,000 ML 1000 / 1000 100 / 100 @ 100 mls/hr IVC .Q10H [facility] Rx#: [id number] Cleocin Premix 900 MG/50 ML 900 100 / 100 50 / 50 mg In 50 ml @ 50 mls/hr IVPB Q8H [facility] Rx#:[id number] Zosyn 3.375 GM In 0.9 % Sodium 100 / 100 100 / 100 Chloride (Mini-Bag +) 100 ML @ 25 mls/hr IVPB Q8HR [facility] Rx#: [id number] Vancocin 1,000 MG In 0.9 % 250 / 250 Sodium Chloride 250 ML @ 167 mls/hr IVPB Q24H CAILIN Rx#: [id number] Oral 0 / 0 600 / 600 Output: Urine 500 / 500 150 / 150 Other: Meal Lunch Percent of Meal Consumed 100% # Bowel Movements 0 0 Weight 92.2 kg Blood Glucose* 167 95 151 Patient Weight 07/24/18 23:59 Weight 92.2 kg - Labs CBC & BMP: 07/24/18 03:49 07/24/18 03:49 Labs: Abnormal lab results WBC 18.0 K/mcL (4.3-11.1) H 07/24/18 03:49 RBC 3.25 M/mcL (3.82-4.97) L 07/24/18 03:49 Hgb 10.3 g/dL (11.5-15.4) L 07/24/18 03:49 Hct 31.4 % (35.3-44.9) L 07/24/18 03:49 Band Neutrophils % 8.0 % (0-4) H 07/23/18 06:10 Neutrophils # 15.9 K/mcL (1.6-8.9) H 07/24/18 03:49 ESR 71 mm/hr (0-15) H 07/24/18 03:49 PT 18.6 Seconds (9.4-12.1) H 07/22/18 18:40 Chloride 112 mEq/L (98-107) H 07/24/18 03:49 Carbon Dioxide 21 mEq/L (23-29) L 07/24/18 03:49 Glucose 270 mg/dL (70-105) H 07/24/18 03:49 Calcium 8.0 mg/dL (8.6-10.3) L 07/24/18 03:49 C-Reactive Protein 292 mg/L (Less than 10) H 07/24/18 03:49 Consult Discharge Plan - Plan Referrals: Joaquim Nesbitt MD [Primary Care Provider] -
[2018-07-24] MEDS ORDERED: Melatonin 3 MG TABLET PO ONE (21:10)
[2018-07-24] MEDS: DOXEPIN 10 MG PO SCH (21:11)
[2018-07-25] MEDS: Piperacillin/Tazobactam 3.375 GM in 0.9 % Sodium Chloride Mini Bag 100 ML IVPB SCH ×3 (00:07→16:59)
[2018-07-25] MEDS: Clindamycin 900 MG/50 ML 900 MG/50 ML IV.SOLN IVPB SCH ×3 (05:42→21:35)
[2018-07-25] MEDS: 0.9 % Sodium Chloride 1,000 ML IVC SCH ×2 (05:43→08:13)
[2018-07-25] MEDS: *HR* Heparin 5,000 UNIT/ML VIAL SQ SCH ×3 (05:43→21:34)
--- NOTE | 2018-07-25 06:38 | Orthopedics Progress Note ---
Date of Encounter: 07/25/18 Time of Encounter: 06:38 Subjective Interval history: Patient was seen this morning doing well without complaints. Afebrile vital signs stable. Operative extremity: Neurovascularly intact Dressing clean dry and intact Calves nontender Assessment and plan: Continue with postoperative care Discharge plan as per infectious disease Objective Vital signs: Vital Signs Temp Pulse Resp BP Pulse Ox 07/25/18 02:56 97.8 F 75 15 132/83 98 07/24/18 20:32 97.9 F 67 15 126/68 98 07/24/18 14:27 98.1 F 73 16 120/64 98 07/24/18 10:50 98.0 F 74 16 105/64 98 Intake and Output 07/24/18 07/24/18 07/25/18 15:59 23:59 07:59 Intake Total 750 / 750 490 / 490 975 / 975 Output Total 150 / 150 0 / 0 500 / 500 Balance 600 / 600 490 / 490 475 / 475 Intake: IV Fluids 150 / 150 250 / 250 975 / 975 0.9 % Sodium Chloride 1,000 ML 100 / 100 975 / 975 @ 100 mls/hr IVC .Q10H [facility] Rx#: [id number] Cleocin Premix 900 MG/50 ML 900 50 / 50 50 / 50 mg In 50 ml @ 50 mls/hr IVPB Q8H [facility] Rx#:[id number] Zosyn 3.375 GM In 0.9 % Sodium 100 / 100 100 / 100 Chloride (Mini-Bag +) 100 ML @ 25 mls/hr IVPB Q8HR [facility] Rx#: [id number] Oral 600 / 600 240 / 240 Output: Urine 150 / 150 0 / 0 500 / 500 Other: Meal Lunch Dinner Percent of Meal Consumed 100% 75% Stool Size Small Moderate Stool Consistency loose soft liquid Stool Color Brown # Voids 2 # Bowel Movements 0 1 1 Weight 92.2 kg Blood Glucose* 95 113 Patient Weight 07/25/18 23:59 Weight 92.2 kg - Labs CBC & BMP: 07/24/18 03:49 07/24/18 03:49 Labs: Abnormal lab results WBC 18.0 K/mcL (4.3-11.1) H 07/24/18 03:49 RBC 3.25 M/mcL (3.82-4.97) L 07/24/18 03:49 Hgb 10.3 g/dL (11.5-15.4) L 07/24/18 03:49 Hct 31.4 % (35.3-44.9) L 07/24/18 03:49 Band Neutrophils % 8.0 % (0-4) H 07/23/18 06:10 Neutrophils # 15.9 K/mcL (1.6-8.9) H 07/24/18 03:49 ESR 71 mm/hr (0-15) H 07/24/18 03:49 PT 18.6 Seconds (9.4-12.1) H 07/22/18 18:40 Chloride 112 mEq/L (98-107) H 07/24/18 03:49 Carbon Dioxide 21 mEq/L (23-29) L 07/24/18 03:49 Glucose 270 mg/dL (70-105) H 07/24/18 03:49 Calcium 8.0 mg/dL (8.6-10.3) L 07/24/18 03:49 C-Reactive Protein 292 mg/L (Less than 10) H 07/24/18 03:49 Vancomycin Trough 3 mcg/mL (5-10) L 07/24/18 19:15 Consult Discharge Plan - Plan Referrals: Joaquim Nesbitt MD [Primary Care Provider] -
[2018-07-25 06:52] LABS: Basophils % 0.7 %; Hematocrit 34.8 % (35.3-44.9); Hemoglobin 11.1 g/dL (11.5-15.4); Immature Granulocytes % 1.1 % (0-4); Lymphocytes % 25.8 %; Mean Corpuscular HGB Conc 31.9 g/dL (31.6-35.5); Mean Corpuscular Volume 97.2 fL (83.0-100.0); Mean Platelet Volume 10.9 fL (9.4-12.4); Monocytes % 6.9 %; Platelet Count 159 K/mcL (140-400); Red Blood Count 3.58 M/mcL (3.82-4.97); Red Cell Distribution Width 14.6 % (11.5-14.5); Segmented Neutrophils % 63.5 %
[2018-07-25 06:53] LABS: Basophils # 0.1 K/mcL (0.0-0.2); Eosinophils # 0.2 K/mcL (0.0-0.6); Lymphocytes # 3.1 K/mcL (0.6-4.6); Monocytes # 0.8 K/mcL (0.0-1.3); Neutrophils # 7.7 K/mcL (1.6-8.9)
[2018-07-25 07:14] LABS: BUN/Creatinine Ratio 12 (6-26); Blood Urea Nitrogen 9 mg/dL (8-23); Calcium 8.1 mg/dL (8.6-10.3); Carbon Dioxide 25 mEq/L (23-29); Chloride 113 mEq/L (98-107); Glucose 102 mg/dL (70-105); Osmolality,Calculated 293 (280-300); Potassium 3.7 mEq/L (3.5-5.1); Sodium 142 mEq/L (136-145); eGFR For Non-African Americans > 60 (> 60)
--- NOTE | 2018-07-25 07:31 | Event Note ---
Date of Encounter: 07/25/18 Time of Encounter: 07:30 Patient was seen and examined. I agree with the progress note as written by the resident physician. Feeling well. Afebrile. pain is controlled. Patient admitted by one of my colleagues for left lower extremity extremity cellulitis. She had acute kidney injury. This resolved now. Yesterday we ended up consulting with orthopedics due to significant left knee swelling and a CT was done which was concerning for a fluid collection. Was taken to the OR for I&D and irrigation. ID is involved and is on IV vanco/zosyn for now with cultures pending. has CRP in the 290sl. GEN: NAD CVS: RRR. S1, S2, No m/r/g RESP: CTAB ABD: Soft, NT, ND, +BS EXT: No edema. 2+ DP. Left knee is wrapped NEURO: Nonfocal c/w broad spectrum abx. Need final recs from ID once cultures are finalized Kidney function improving. stop IV fluids Monitor electrolytes. Seen by Dr. Alcazar and no need for anticoags. Heparin drip stopped as the DVT in lower ext is chronic. On heparin SQ
[2018-07-25 07:54] LABS: Platelet Estimate Normal (Normal); Reactive Lymphocytes Present (Not Present)
--- NOTE | 2018-07-25 07:57 | Internal Med Progress Note ---
Hospitalist Progress Note - Encounter Date of Encounter: 07/25/18 Time of Encounter: 07:57 - Subjective Interval History: Ms. Olmstead was seen and examined at the bedside. She reports further improvement in her lower extremity pain and swelling since yesterday, and is eager to go home. She denies any fevers or chills, and voices no acute complaints or conc erns at this time. - Exam Vitals: Temp Pulse Resp BP Pulse Ox 98.1 F 70 16 126/75 96 07/25/18 07:04 07/25/18 07:04 07/25/18 07:04 07/25/18 07:04 07/25/18 07:04 Exam: GENERAL: Pleasant adult female lying in bed. She does not appear to be in acute distress. HEENT: Atraumatic and normocephalic. CARDIOVASCULAR: Regular rate and rhythm. S1 and S2 present. No murmurs, gallops, or rubs appreciated. RESPIRATORY: Clear to auscultation bilaterally. Chest rises and falls symmetrically with respiration. No accessory muscle use noted. GASTROINTESTINAL: Abdomen is soft, nontender, nondistended. EXTREMITIES: Bilateral LE are edematous, with erythema of the left foot present. Post-surgical joshua bandage present on left leg, with improvement in swelling. NEUROLOGIC: Alert and oriented x3. Patient is cooperative with exam and answers questions appropriately. No apparent focal deficits present. - Assessment and Plan (1) Necrotizing subcutaneous infection Current Visit: Yes Status: Acute Assessment and Plan: Unknown source. Patient did have a recent fall during which she injured her left knee, and reports that symptoms began shortly after that. Patient was noted to be febrile while in the ED, with overnight Tmax of 102.8. AM laboratory studies demonstrated WBC count of 26.4, with 8% bands. ESR and CRP are noted to be elevated, at 54 and 291, respectively. Left lower extremity CT was significant for soft tissue edema and a 6.1 x 1.3 x 11.1 cm fluid collection within the anterolateral prepatellar soft tissues. Patient underwent I/D of prepatellar abscess by orthopedic surgery yesterday afternoon and appears much improved today. Morning labs today showed improvement in WBC count; however, ESR and CRP remain elevated at 83 and 161, respectively. - Broad spectrum antibiotic coverage with vancomycin, zosyn, and clindamycin. Day 3 of antibiotic therapy. - Follow on culture results, with antibiotic adjustments as indicated. - Repeat and trend CBC, ESR, and CRP. - Wound care per surgery recommendations. - Close monitoring for signs of worsening or spread of infection. - Appreciate Infectious disease assistance with antimicrobial recommendations. (2) Cellulitis Current Visit: Yes Status: Acute Assessment and Plan: Secondary to necrotizing soft tissue abscess. - Further plan as above. (3) DVT (deep venous thrombosis) Current Visit: Yes Status: Chronic Assessment and Plan: Prior history of DVT with placement of an irretrievable IVC filter in 1989. Patient was evaluated by her PCP approximately 1 week ago, and was sent for a lower extremity doppler exam on 07/16/2018, which was significant for left acute DVT in distal iliac vein and superficial thrombosis in lesser saphenous vein. She was started on xarelto for anticoagulation approximately one week ago. Ms. Olmstead reported worsening redness and swelling of her knee despite anticoagulation, with associated fevers, nausea, and confusion. Repeat LE dopper performed yesterday noted chronic DVT of the left distal iliac vein and superficial thrombosis in the lesser saphenous vein. Patient was initially started on a heparin gtt at the time of admission; however this has been discontinued due to need for I/D of prepatellar abscess. Drain is present at surgical site, increasing the risk of bleeding from this area if h eparin gtt is continued. Per vascular surgery consult yesterday, patient has no need for therapeutic anticoagulation at this time. - Continue heparin SQ (4) Acute kidney injury Current Visit: Yes Status: Resolved Assessment and Plan: Resolved. - Continue to monitor creatinine and renal function via AM metabolic panels. (5) Hypothyroid Current Visit: Yes Status: Acute Assessment and Plan: - Continue home dose of levothyroxine 112mcg. DVT Prophylaxis: - Heparin 5000units SQ Q8H - Time Spent with Patient Total time spent is greater than 50% in coordination of care (as documented) at patient's floor/unit and/or counseling patient: Internal Medicine: Result - Labs CBC & Chem 7: 07/25/18 06:21 07/25/18 06:21 Labs: Short CBC 07/25/18 Range/Units 06:21 WBC 12.1 H (4.3-11.1) K/mcL Hgb 11.1 L (11.5-15.4) g/dL Hct 34.8 L (35.3-44.9) % Plt Count 159 (140-400) K/mcL Neutrophils # 7.7 (1.6-8.9) K/mcL BMP 07/25/18 06:21 Sodium 142 Potassium 3.7 Chloride 113 H Carbon Dioxide 25 BUN 9 Creatinine 0.77 Glucose 102 Calcium 8.1 L - ABG Interpretation ABG results: PT/INR, D-dimer PT 18.6 Seconds (9.4-12.1) H 07/22/18 18:40 Consult Discharge Plan - Plan Referrals: Joaquim Nesbitt MD [Primary Care Provider] - (2) Cellulitis Qualifiers: Site of cellulitis: extremity Site of cellulitis of extremity: lower extremity Laterality: left Qualified Code(s): L03.116 - Cellulitis of left lower limb (3) DVT (deep venous thrombosis) Qualifiers: DVT location: lower extremity Affected thrombotic vein of extremity: iliac Chronicity: unspecified Laterality: left Qualified Code(s): I82.422 - Acute embolism and thrombosis of left iliac vein (5) Hypothyroid Qualifiers: Hypothyroidism type: unspecified Qualified Code(s): E03.9 - Hypothyroidism, unspecified
[2018-07-25] MEDS: Insulin LISPRO 300 UNITS/3 ML VIAL SQ SCH ×4 (08:00→21:33)
[2018-07-25] MEDS: Gabapentin 300 MG CAPSULE PO SCH ×3 (08:15→21:34)
[2018-07-25] MEDS: Nicotine 21 MG PATCH.TD24 TD SCH (08:16)
[2018-07-25] MEDS: Diphenoxylate/Atropine 1 TAB TABLET PO PRN (19:23)
[2018-07-25] MEDS: DOXEPIN 10 MG PO SCH (21:35)
[2018-07-25] MEDS ORDERED: Melatonin 3 MG TABLET PO ONE (22:05)
[2018-07-25] MEDS ORDERED: Preparation H Ointment 30 GM TUBE TP PRN (22:05)
[2018-07-26] MEDS: Piperacillin/Tazobactam 3.375 GM in 0.9 % Sodium Chloride Mini Bag 100 ML IVPB SCH ×2 (01:04→08:26)
[2018-07-26 03:47] LABS: Basophils # 0.1 K/mcL (0.0-0.2); Basophils % 0.8 %; Eosinophils # 0.3 K/mcL (0.0-0.6); Eosinophils % 3.1 %; Hematocrit 31.5 % (35.3-44.9); Hemoglobin 10.2 g/dL (11.5-15.4); Immature Granulocytes % 1.9 % (0-4); Lymphocytes % 30.1 %; Mean Corpuscular HGB Conc 32.4 g/dL (31.6-35.5); Mean Corpuscular Hemoglobin 31.2 pg (28.0-33.3); Mean Corpuscular Volume 96.3 fL (83.0-100.0); Mean Platelet Volume 10.8 fL (9.4-12.4); Monocytes # 0.8 K/mcL (0.0-1.3); Monocytes % 8.1 %; Neutrophils # 5.5 K/mcL (1.6-8.9); Platelet Count 187 K/mcL (140-400); Red Blood Count 3.27 M/mcL (3.82-4.97); Red Cell Distribution Width 14.7 % (11.5-14.5)
[2018-07-26 04:07] LABS: BUN/Creatinine Ratio 14 (6-26); Blood Urea Nitrogen 11 mg/dL (8-23); Calcium 8.1 mg/dL (8.6-10.3); Carbon Dioxide 24 mEq/L (23-29); Chloride 111 mEq/L (98-107); Glucose 100 mg/dL (70-105); Osmolality,Calculated 287 (280-300); Potassium 3.6 mEq/L (3.5-5.1); Sodium 139 mEq/L (136-145); eGFR For Non-African Americans > 60 (> 60)
[2018-07-26] MEDS: Clindamycin 900 MG/50 ML 900 MG/50 ML IV.SOLN IVPB SCH (05:24)
[2018-07-26] MEDS: *HR* Heparin 5,000 UNIT/ML VIAL SQ SCH ×3 (05:24→21:32)
--- NOTE | 2018-07-26 08:03 | Internal Med Progress Note ---
Hospitalist Progress Note - Encounter Date of Encounter: 07/26/18 Time of Encounter: 08:01 - Subjective Interval History: Patient was seen and examined. No acute events. Tmax 99.7. Feeling well. pain is controlled. Patient admitted by one of my colleagues for left lower extremity extremity cellulitis. She had acute kidney injury. This resolved now. We ended up consulting with orthopedics due to significant left knee swelling and a CT was done which was concerning for a fluid collection. Was taken to the OR for I&D and irrigation. ID is involved and is on IV vanco/zosyn for now with cultures are growing gram positive coccis. has CRP in the 290sl. - Exam Vitals: Temp Pulse Resp BP Pulse Ox 98.2 F 76 16 136/72 97 07/26/18 07:12 07/26/18 07:12 07/26/18 07:12 07/26/18 07:12 07/26/18 07:12 Exam: GEN: NAD CVS: RRR. S1, S2, No m/r/g RESP: CTAB ABD: Soft, NT, ND, +BS EXT: No edema. 2+ DP. Left knee is wrapped NEURO: Nonfocal - Assessment and Plan (1) Cellulitis Current Visit: Yes Status: Acute Assessment and Plan: Secondary to necrotizing soft tissue abscess. s/p I&D of left knee. cultures growing gram + cocci. Not finalized yest. On broad spectrum abx with vanco/zosyn. ID is following. ESR trended somewhat up. CRP trending down. (2) Necrotizing subcutaneous infection Current Visit: Yes Status: Acute Assessment and Plan: as above. (3) DVT (deep venous thrombosis) Current Visit: Yes Status: Chronic Assessment and Plan: Has an IVC filter since 1989. New DVT is chronic in nature. Seen by Dr. Alcazar who did not recommend anticoags her. (4) Acute kidney injury Current Visit: Yes Status: Resolved Assessment and Plan: Resolved. (5) Diabetes mellitus type 2 in obese Current Visit: Yes Status: Acute Assessment and Plan: SSI. Accu cheks. (6) Hypothyroid Current Visit: Yes Status: Acute Assessment and Plan: - Continue home dose of levothyroxine 112mcg. DVT Prophylaxis: heparin SQ - Time Spent with Patient Total time spent is greater than 50% in coordination of care (as documented) at patient's floor/unit and/or counseling patient: Internal Medicine: Result - Labs CBC & Chem 7: 07/26/18 03:03 07/26/18 03:03 Labs: Short CBC 07/26/18 Range/Units 03:03 WBC 9.9 (4.3-11.1) K/mcL Hgb 10.2 L (11.5-15.4) g/dL Hct 31.5 L (35.3-44.9) % Plt Count 187 (140-400) K/mcL Neutrophils # 5.5 (1.6-8.9) K/mcL BMP 07/26/18 03:03 Sodium 139 Potassium 3.6 Chloride 111 H Carbon Dioxide 24 BUN 11 Creatinine 0.77 Glucose 100 Calcium 8.1 L - ABG Interpretation ABG results: PT/INR, D-dimer PT 18.6 Seconds (9.4-12.1) H 07/22/18 18:40 Consult Discharge Plan - Plan Referrals: Joaquim Nesbitt MD [Primary Care Provider] - (1) Cellulitis Qualifiers: Site of cellulitis: extremity Site of cellulitis of extremity: lower extremity Laterality: left Qualified Code(s): L03.116 - Cellulitis of left lower limb (3) DVT (deep venous thrombosis) Qualifiers: DVT location: lower extremity Affected thrombotic vein of extremity: iliac Chronicity: unspecified Laterality: left Qualified Code(s): I82.422 - Acute embolism and thrombosis of left iliac vein (6) Hypothyroid Qualifiers: Hypothyroidism type: unspecified Qualified Code(s): E03.9 - Hypothyroidism, unspecified
[2018-07-26] MEDS: Insulin LISPRO 300 UNITS/3 ML VIAL SQ SCH ×4 (08:20→21:46)
[2018-07-26] MEDS: Gabapentin 300 MG CAPSULE PO SCH ×3 (08:27→21:32)
[2018-07-26] MEDS: Nicotine 21 MG PATCH.TD24 TD SCH (08:27)
[2018-07-26] MEDS: Diphenoxylate/Atropine 1 TAB TABLET PO PRN ×2 (08:38→21:32)
[2018-07-26] MEDS: DOXEPIN 10 MG PO SCH (21:32)
[2018-07-26] MEDS ORDERED: Melatonin 3 MG TABLET PO ONE (21:58)
[2018-07-27] MEDS: *HR* Heparin 5,000 UNIT/ML VIAL SQ SCH (05:27)
[2018-07-27] MEDS: Insulin LISPRO 300 UNITS/3 ML VIAL SQ SCH ×2 (08:25→11:40)
[2018-07-27] MEDS: Gabapentin 300 MG CAPSULE PO SCH (08:27)
[2018-07-27] MEDS: Nicotine 21 MG PATCH.TD24 TD SCH (08:27)
--- NOTE | 2018-07-27 08:30 | Discharge Summary ---
<Ella Yang M - Last Filed: 07/27/18 14:38> - NOTES TO OUTPATIENT PROVIDER Notes to Outpatient Provider: MSSA Cellulitis. Augmentin started on discharge. x10 days. Follow up with Orthopedic Surgery Orders not resulted at time of discharge: Pending orders 07/22/18 18:40 Culture,Blood [BC] Stat 07/23/18 13:43 Culture,Anaerobic [RM] Routine 07/27/18 08:15 BMP [Basic Metabolic Panel] Stat C-Reactive Protein Stat Complete Blood Count [HEME] Stat ESR [Erythrocyte Sedimentation Rate] [HEME] Stat Magnesium Stat Date of Encounter: 07/27/18 Time of Encounter: 09:55 - Discharge Diagnosis (1) Cellulitis Priority: Primary Status: Acute Assessment and Plan: Discharge home on Augmentin 875mg BID x10 days Qualifiers: Site of cellulitis: extremity Site of cellulitis of extremity: lower extremity Laterality: left Qualified Code(s): L03.116 - Cellulitis of left lower limb (2) Necrotizing subcutaneous infection Priority: Secondary Status: Acute Assessment and Plan: Augmentin as above. Follow up with orthopedic surgery in one week for stitch removal Staph aureus (3) Acute kidney injury Priority: Primary Status: Resolved (4) COPD (chronic obstructive pulmonary disease) Priority: Secondary Status: Chronic Qualifiers: COPD type: unspecified COPD Qualified Code(s): J44.9 - Chronic obstructive pulmonary disease, unspecified (5) Hypothyroid Priority: Secondary Status: Chronic Qualifiers: Hypothyroidism type: unspecified Qualified Code(s): E03.9 - Hypothyroidism, unspecified (6) DVT (deep venous thrombosis) Priority: Secondary Status: Chronic Qualifiers: DVT location: lower extremity Affected thrombotic vein of extremity: iliac Chronicity: unspecified Laterality: left Qualified Code(s): I82.422 - Acute embolism and thrombosis of left iliac vein (7) Diabetes mellitus type 2 in obese Priority: Secondary Status: Chronic Hospital course: Ms. Olmstead is a 62 year old female with past medical history including hypothyroidism, prior crush injury of the left lower extremity with [place] IVC filter, presenting on July 22 with left lower extremity erythema and swelling. The patient was diagnosed a week prior to hospitalization with acute left distal iliac vein and superficial thrombosis of the left saphenous vein was started on Xarelto. In the ER, patient was started on broad-spectrum antibiotics for suspected left lower extremity cellulitis. Repeat lower extremity ultrasound did not show any new DVT. Patient was started on heparin. On July 23, patient had CT of her left lower extremity for further evaluation of the cellulitis and it was concerning for fluid collection. She was taken to the OR for left lower extremity necrotizing subcutaneous abscess. She received incision and drainage, irrigation, debridement of the left lower extremity and subcutaneous tissue by orthopedic surgery, Dr. Quiroz. Patient has received 5 day course of IV vancomycin, Zosyn, clindamycin. She is received daily wound care of her left lower extremity. Infectious disease has also been following the patient and wound cultures have grown Staphylococcus aureus. Patient will be discharged home on Augmentin 875mg BID x10 days to complete 14 days of antibiotics per infectious disease as well as follow-up with orthopedic surgery in one week for her removal of the stitches and follow-up of her wound. She was evaluated by Dr. Alcazar, Vascular surgery who recommended as the pateint is on the IVC filter, she does not need to be on Xarelto so this has b een discontinued. She will do daily soapy soaks and daily clean dressing changes. Patient states she is doing well, denies pain, has no acute complaints. Vitals are stable at time of discharge. She will be discharged home. She will have a walker on discharge, script was sent. Discharge discussed with: patient, family - Time Spent with Patient Total time spent providing and/or coordinating discharge services: - Discharge Medications Prescriptions: Amoxicillin/Clavulanate [Augmentin] 875 mg PO BIDWM 10 Days #20 tablet Home Medications: RX: Calcium Carbonate/Vitamin D3 [Calcium 500 mg Chewable Tablet] 500 mg PO BID 05/06/15 [History] RX: Citalopram Hydrobromide [Citalopram HBr] 40 mg PO DAILY 05/06/15 [History] RX: Levothyroxine [Synthroid] 112 mcg PO DAILY 05/06/15 [History] RX: Omeprazole [PriLOSEC] 20 mg PO BID PRN 05/06/15 [History] RX: Gabapentin [Neurontin] 300 mg PO TID 04/01/16 [History] RX: Lidocaine Patch [Lidoderm 5% patch] 1 each TP Q12H PRN 04/01/16 [History] RX: Pravastatin Sodium [Pravachol] 20 mg PO DAILY 02/07/17 [History] RX: Vitamin B Complex [B Complex] 1 tab PO DAILY 02/07/17 [History] RX: Doxepin HCl 10 mg PO HS 03/06/18 [History] RX: Metformin HCl [Metformin ER Gastric] 500 mg PO BID 03/06/18 [History] Amoxicillin/Clavulanate [Augmentin] 875 mg PO BIDWM 10 Days #20 tablet 07/27/18 [Rx] Allergies/Adverse Reactions: Allergy/AdvReac Type Severity Reaction Status Date / Time codeine AdvReac Hives Verified 07/22/18 17:57 Date of admission: 07/23/18 03:09 Primary care physician: Joaquim Nesbitt MD Consults: 07/23/18 10:51 Consult to Orthopedic Surgery [CONS] Routine Consulting Provider: Joey Quiroz Reason for Consult: Left knee pain and swelling; elevated CRP/ESR, concern for septic joint Time Notified: 10:51 Call Completed: Yes 07/23/18 12:57 Consult to Infectious Diseases [CONS] Routine Consulting Provider: Infectious Disease [place] Reason for Consult: necrotizing soft tissue infection of left knee Time Notified: 12:58 Call Completed: Yes 07/23/18 14:59 Consult to Vascular Surgery [CONS] Routine Consulting Provider: Vascular Surgery [place] Reason for Consult: Chronic left DVT with placement of IVC filter in 1989. S/p I/D for necrotizing subcutaneous abscess this afternoon; recommendations for anticoagulation Time Notified: 15:00 Call Completed: Yes Discharging clinician: Ella Yang Anticipated date of discharge: 07/27/18 - Constitutional Vitals: Temp Pulse Resp BP Pulse Ox 98.0 F 73 16 146/77 97 07/27/18 07:03 07/27/18 07:03 07/27/18 07:03 07/27/18 07:03 07/27/18 07:03 General appearance: Present: cooperative, A&O X 3, pleasant, no acute distress Exam: See below - Head Head exam: Present: atraumatic, normocephalic - Eye Eye exam: Present: normal appearance. Absent: conjunctival injection - ENT ENT exam: Present: mucous membranes moist - Neck Neck exam general surgery: Present: full ROM, trachea midline - Respiratory Respiratory exam: Present: CTAB. Absent: accessory muscle use, respiratory distress - Cardiovascular Cardiovascular exam: Present: RRR, +S1, +S2 - GI/Abdominal GI/Abdominal exam: Present: normal bowel sounds, soft. Absent: distended, guarding, rigid, tenderness - Extremities Exam Extremities exam: Present: warm. Absent: tenderness Additional comments: Left knee with clean dry dressing. No purulent drainage in incision. Sutures intact - Neurological Exam Neurological exam: Present: alert, oriented X3 - Psychiatric Psychiatric exam: Present: normal affect, normal mood - Skin Skin exam: Present: dry - Patient Status Disposition: Home, Self-Care Condition: Good Functional capacity at discharge: independent ambulation Overall status at discharge: patient is progressing back to baseline - Discharge Instructions Instructions: Suture Care (DC) Follow Up With: Joaquim Nesbitt MD [Primary Care Provider] - (Patient prefers to make own appointment. Thank you) Joey Quiroz MD [Partnered Physician] - (Patient prefers to make own appointment. Thank you) Additional Instructions: Local wound care with daily dressing changes, soapy soaks. Follow up with orthopedic surgery in the office in 1 week for stitch removal. - Diet and Activity Activity: increase activity as tolerated Diet: advance to your usual diet <Troy Bowers - Last Filed: 07/27/18 17:14> Orders not resulted at time of discharge: Pending orders 07/22/18 18:40 Culture,Blood [BC] Stat 07/23/18 13:43 Culture,Anaerobic [RM] Routine Date of Encounter: 07/27/18 - Discharge Diagnosis (1) Sepsis Priority: Primary Status: Acute Qualifiers: Sepsis type: sepsis due to unspecified organism Qualified Code(s): A41.9 - Sepsis, unspecified organism (2) Cellulitis Status: Acute Qualifiers: Site of cellulitis: extremity Site of cellulitis of extremity: lower extremity Laterality: left Qualified Code(s): L03.116 - Cellulitis of left lower limb (3) Necrotizing subcutaneous infection Status: Acute (4) DVT (deep venous thrombosis) Status: Chronic Qualifiers: DVT location: lower extremity Affected thrombotic vein of extremity: iliac Chronicity: unspecified Laterality: left Qualified Code(s): I82.422 - Acute embolism and thrombosis of left iliac vein (5) Acute kidney injury Status: Resolved (6) Diabetes mellitus type 2 in obese Status: Chronic (7) Hypothyroid Status: Chronic Qualifiers: Hypothyroidism type: unspecified Qualified Code(s): E03.9 - Hypothyroidism, unspecified Hospital course: Ms. Olmstead is a 62 year old female - Time Spent with Patient Total time spent providing and/or coordinating discharge services: Greater than 30 minutes Date of admission: 07/23/18 03:09 Primary care physician: Joaquim Nesbitt MD Consults: 07/23/18 10:51 Consult to Orthopedic Surgery [CONS] Routine Consulting Provider: Joey Quiroz Reason for Consult: Left knee pain and swelling; elevated CRP/ESR, concern for septic joint Time Notified: 10:51 Call Completed: Yes 07/23/18 12:57 Consult to Infectious Diseases [CONS] Routine Consulting Provider: Infectious Disease [place] Reason for Consult: necrotizing soft tissue infection of left knee Time Notified: 12:58 Call Completed: Yes 07/23/18 14:59 Consult to Vascular Surgery [CONS] Routine Consulting Provider: Vascular Surgery [place] Reason for Consult: Chronic left DVT with placement of IVC filter in 1989. S/p I/D for necrotizing subcutaneous abscess this afternoon; recommendations for anticoagulation Time Notified: 15:00 Call Completed: Yes - Constitutional Vitals: Temp Pulse Resp BP Pulse Ox 98.2 F 65 16 132/66 96 07/27/18 11:20 07/27/18 11:20 07/27/18 11:20 07/27/18 11:20 07/27/18 11:20 - Attending Attestation I examined this patient and my medical decision-making was reviewed with the Resident Physician. I agree with the documented discharge as above. Treated for left knee cellulitis and abscess of left lower ext at the knee site. Had I&D with ortho. cultures grew MSSA. discharged on augmenting for 14 days. Was septic on admission but all signs of sepsis resolved by discharge GEN: NAD CVS: RRR. S1, S2, No m/r/g RESP: CTAB ABD: Soft, NT, ND, +BS EXT: No edema. 2+ DP. left knee wrapped and swelling signficantly decreased NEURO: Nonfocal Addendum entered and electronically signed by Ella Yang 07/27/18 15:21: Addendum to discharge diagnosis. Sepsis present on admission, secondary to cellulitis and necrotizing subcutaneous infection. Now resolved.
--- NOTE | 2018-07-27 09:15 | Orthopedics Progress Note ---
Date of Encounter: 07/27/18 Time of Encounter: 07:00 - Assessment and Plan (1) Cellulitis Current Visit: Yes Status: Acute Qualifiers: Site of cellulitis: extremity Site of cellulitis of extremity: lower extremity Laterality: left Qualified Code(s): L03.116 - Cellulitis of left lower limb Subjective Interval history: S: Resting in bed comfortably Significant improvement in the left lower extremity pain, particularly around the knee O: Afebrile on the vital signs are stable Left knee wound with no drainage Cellulitis resolved Improved motion about the left knee. Foot is sensate and well perfused. A: Cellulitis resolved P: Orthopedically stable for discharge Abx per ID Local wound care with daily dressing changes, soapy soaks. Follow up with me in the office in 1 weeks for stitch removal. Objective Vital signs: Vital Signs Temp Pulse Resp BP Pulse Ox 07/27/18 07:03 98.0 F 73 16 146/77 97 07/27/18 04:53 98.9 F 81 16 146/75 96 07/26/18 21:36 98.0 F 72 15 136/90 97 07/26/18 15:37 98.3 F 70 16 138/75 100 07/26/18 10:07 98.4 F 73 16 150/76 98 Intake and Output 07/26/18 07/27/18 07/27/18 23:59 07:59 15:59 Intake Total 340 / 340 250 / 250 60 / 60 Balance 340 / 340 250 / 250 60 / 60 Intake: IV Fluids 100 / 100 250 / 250 Zosyn 3.375 GM In 0.9 % Sodium 100 / 100 Chloride (Mini-Bag +) 100 ML @ 25 mls/hr IVPB Q8HR CAILIN Rx#: [id number] Vancocin 1,250 MG In 0.9 % 250 / 250 Sodium Chloride 250 ML @ 166. 667 mls/hr IVPB Q12H CAILIN Rx#: [id number] Oral 240 / 240 0 / 0 60 / 60 Other: Meal Dinner Percent of Meal Consumed 100% # Voids 1 2 # Bowel Movements 1 Weight 95 kg Blood Glucose* 156 125 Patient Weight 07/27/18 23:59 Weight 95 kg - Labs CBC & BMP: 07/26/18 03:03 07/26/18 03:03 Labs: Abnormal lab results RBC 3.27 M/mcL (3.82-4.97) L 07/26/18 03:03 Hgb 10.2 g/dL (11.5-15.4) L 07/26/18 03:03 Hct 31.5 % (35.3-44.9) L 07/26/18 03:03 RDW 14.7 % (11.5-14.5) H 07/26/18 03:03 Band Neutrophils % 8.0 % (0-4) H 07/23/18 06:10 Reactive Lymphocytes Present (Not Present) A 07/25/18 06:21 ESR 90 mm/hr (0-15) H 07/26/18 03:03 PT 18.6 Seconds (9.4-12.1) H 07/22/18 18:40 Chloride 111 mEq/L (98-107) H 07/26/18 03:03 POC Glucose 189 mg/dL (70-99) H 07/26/18 11:01 Calcium 8.1 mg/dL (8.6-10.3) L 07/26/18 03:03 C-Reactive Protein 81 mg/L (Less than 10) H 07/26/18 03:03 Consult Discharge Plan - Plan Referrals: Joaquim Nesbitt MD [Primary Care Provider] -
[2018-07-27 10:11] LABS: Basophils # 0.1 K/mcL (0.0-0.2); Basophils % 0.6 %; Eosinophils # 0.3 K/mcL (0.0-0.6); Hematocrit 33.8 % (35.3-44.9); Hemoglobin 11.2 g/dL (11.5-15.4); Immature Granulocytes % 2.3 % (0-4); Lymphocytes # 2.3 K/mcL (0.6-4.6); Lymphocytes % 23.2 %; Mean Corpuscular HGB Conc 33.1 g/dL (31.6-35.5); Mean Corpuscular Hemoglobin 31.5 pg (28.0-33.3); Mean Corpuscular Volume 94.9 fL (83.0-100.0); Mean Platelet Volume 10.6 fL (9.4-12.4); Monocytes # 0.8 K/mcL (0.0-1.3); Monocytes % 8.1 %; Neutrophils # 6.1 K/mcL (1.6-8.9); Platelet Count 196 K/mcL (140-400); Red Blood Count 3.56 M/mcL (3.82-4.97); Red Cell Distribution Width 14.6 % (11.5-14.5); Segmented Neutrophils % 62.8 %
[2018-07-27 10:30] LABS: BUN/Creatinine Ratio 11 (6-26); Blood Urea Nitrogen 8 mg/dL (8-23); C-Reactive Protein 46 mg/L (Less than 10); Calcium 8.4 mg/dL (8.6-10.3); Carbon Dioxide 24 mEq/L (23-29); Chloride 107 mEq/L (98-107); Glucose 187 mg/dL (70-105); Magnesium 2.1 mg/dL (1.6-2.6); Osmolality,Calculated 291 (280-300); Potassium 3.9 mEq/L (3.5-5.1); Sodium 139 mEq/L (136-145); eGFR For Non-African Americans > 60 (> 60)
--- NOTE | 2018-07-27 11:16 | Infectious Disease Progress No ---
Date of Encounter: 07/27/18 Time of Encounter: 11:14 - Assessment and Plan (1) Sepsis Status: Acute The patietn had 4 SIRS criteria with CARTER. Secondary to skin and soft tissue infection. Improved. Blood cultures drawn 07/22/18 are NGTD x 2 sets. Recommendations: Await blood cultures to finalize. Wound care and activity per the ortho team. Discontinue Vancomycin. Start cefazolin 2 grams IV Q8H. Duration of treatment depends on the clinical picture. Can likely transition to Augmentin 875mg PO BID when ready for discharge to complete 14 day post-op course. Monitor renal function and dose-adjust antibiotics. Qualifiers: Sepsis type: sepsis due to unspecified organism Qualified Code(s): A41.9 - Sepsis, unspecified organism (2) Cellulitis of left lower extremity without foot Status: Acute Location: Left lower extremity. Causative organism MSSA. Status post fall 5 weeks prior with trauma to LLE. CT notes 6.1 x 1.3 x 11.1 cm fluid collection within the anterolateral prepat ellar soft tissues. No internal foci of gas. with soft tissue edema. Status post I&D by Dr. Quiroz 07/23/18; intra-op copious purulent drainage. Intra-op cultures as above. Currently on IV Vancomycin. (3) Abscess of left leg Status: Acute Location: Pre-patellar. Causative organism: MSSA. Likely secondary to recent trauma. Status post I & D 07/23/[address] Quiroz. Currently on IV Vancomycin. (4) DVT (deep venous thrombosis) Status: Chronic Qualifiers: DVT location: lower extremity Affected thrombotic vein of extremity: iliac Chronicity: unspecified Laterality: left Qualified Code(s): I82.422 - Acute embolism and thrombosis of left iliac vein (5) Diabetes mellitus type 2 in obese Status: Chronic Recommend strict glucose control. - Subjective Interval history: Patient seen and examined. No acute events noted overnight. Patient states she feels great and wants to go home. Denies fevers, chills, or rigors. Denies chest pain, shortness of breath, or cough. Denies nausea, vomiting, or constipation. Reports 2 loose stools per day. Denies abdominal pain, urinary complaints, or appetite changes. Denies oral thrush or new skin lesions. Reports minimal pain at the surgical site. Infect Dis PN-Objective Data - Labs CBC & Chem 7: 07/27/18 09:42 07/27/18 09:42 Labs: Laboratory Results - last 24 hr 07/26/18 07/27/18 07/27/18 11:01 09:42 09:42 WBC 9.7 RBC 3.56 L Hgb 11.2 L Hct 33.8 L MCV 94.9 MCH 31.5 MCHC 33.1 RDW 14.6 H Plt Count 196 MPV 10.6 Immature Gran % 2.3 Seg Neutrophils % 62.8 Lymphocytes % 23.2 Monocytes % 8.1 Eosinophils % 3.0 Basophils % 0.6 Neutrophils # 6.1 Lymphocytes # 2.3 Monocytes # 0.8 Eosinophils # 0.3 Basophils # 0.1 ESR 83 H Sodium Potassium Chloride Carbon Dioxide BUN Creatinine Est GFR ( Amer) Est GFR (Non-Af Amer) BUN/Creatinine Ratio Glucose POC Glucose 189 H Calculated Osmolality Calcium Magnesium C-Reactive Protein 07/27/18 09:42 WBC RBC Hgb Hct MCV MCH MCHC RDW Plt Count MPV Immature Gran % Seg Neutrophils % Lymphocytes % Monocytes % Eosinophils % Basophils % Neutrophils # Lymphocytes # Monocytes # Eosinophils # Basophils # ESR Sodium 139 Potassium 3.9 Chloride 107 Carbon Dioxide 24 BUN 8 Creatinine 0.74 Est GFR ( Amer) > 60 Est GFR (Non-Af Amer) > 60 BUN/Creatinine Ratio 11 Glucose 187 H POC Glucose Calculated Osmolality 291 Calcium 8.4 L Magnesium 2.1 C-Reactive Protein 46 H Cultures: Cultures 07/23/18 13:43 Anaerobic Culture - Preliminary Left Leg At this time, no anaerobic growth is present. The culture will be finalized after 5 days of incubation. 07/23/18 13:43 Wound Culture - Final Left Leg Staphylococcus aureus 07/23/18 13:43 Surgical Biopsy Culture - Final Left Leg Staphylococcus aureus 07/22/18 18:41 Blood Culture - Preliminary Peripheral Venipuncture Culture is incubating and being continuously monitored for growth. Final report to follow. 07/22/18 18:40 Blood Culture - Preliminary Peripheral Venipuncture Culture is incubating and being continuously mon itored for growth. Final report to follow. Exam - Constitutional Vitals: Temp Pulse Resp BP Pulse Ox 98.0 F 73 16 146/77 97 07/27/18 07:03 07/27/18 07:03 07/27/18 07:03 07/27/18 07:03 07/27/18 07:03 General appearance: cooperative, no acute distress, obese - Head Head exam: Present: atraumatic, normal inspection, normocephalic - Eye Eye exam: Present: EOMI, normal appearance, PERRL Pupils: Present: normal accommodation - ENT ENT exam: Present: mucous membranes moist - Neck Neck exam: Present: normal inspection - Respiratory Respiratory exam: Present: CTAB. Absent: rales, respiratory distress, rhonchi, wheezes - Cardiovascular Cardiovascular exam: Present: RRR, +S1, +S2 - GI/Abdominal GI/Abdominal exam: Present: distended (obese), normal bowel sounds, soft. Abse nt: tenderness - Extremities Exam Extremities exam: Absent: normal inspection (Surgical site noted to the left anterior lower extremity with retention sutures intact. No surrounding erythema or warmth. Mild tenderness. ROM of the knee normal. Scant serous drainage noted.) - Neurological Exam Neurological exam: Present: alert, oriented X3, no focal deficits - Psychiatric Psychiatric exam: Present: normal affect, normal mood - Skin Skin exam: Present: dry, intact, normal color, warm Consult Discharge Plan - Plan Instructions: Suture Care (DC) Additional Instructions: Local wound care with daily dressing changes, soapy soaks. Follow up with orthopedic surgery in the office in 1 week for stitch removal. Referrals: Joaquim Nesbitt MD [Primary Care Provider] - (Patient prefers to make own appointment. Thank you) Joey Quiroz MD [Partnered Physician] - (Patient prefers to make own appointment. Thank you) Prescriptions: Amoxicillin/Clavulanate [Augmentin] 875 mg PO BIDWM 10 Days #20 tablet - Attending Attestation I have personally performed a face to face evaluation on this patient. I have reviewed and agree with the care plan. History and Exam by me shows: Patient with necrotizing abscess of the left lower extremity. Causative organism is staph aureus. Clinically she is doing great and her labs are better and vital signs are improved Discussed with orthopedics Tentative discharge on Augmentin for 14 days total
[2018-07-27 11:22] VITALS: BP 132/66
[2018-07-27] MEDS ORDERED: Aminoglycoside Consult 1 EACH MC ONE (14:59)
== END 2018-07-27 15:00 | disposition home or self-care (01) | DRG 854 ==
LOC: 3ANU 16:25 → EMEROOARM 16:25 → 3ANU 22:05 → SUATTDRO 07-23 03:09
PROVIDERS: ADMIT Pediatrics; ATTEND Internal Medicine

== ENCOUNTER 2019-02-12 09:32 | Inpatient (IN) ==
[2019-02-12] MEDS ORDERED: *HR* Midazolam HCl 2 MG/2 ML VIAL ONE (09:54)
[2019-02-12] MEDS ORDERED: *HR* FentaNYL (PF) 100 MCG/2 ML VIAL ONE (09:54)
[2019-02-12] MEDS ORDERED: *HR* Propofol 200 MG/20 ML VIAL IVP ONE (09:55)
[2019-02-12] MEDS ORDERED: *HR* Succinylcholine 200 MG/10 ML VIAL IVP ONE (09:56)
[2019-02-12] MEDS ORDERED: Lidocaine -MPF 2% 2 ML VIAL ONE (09:56)
[2019-02-12] MEDS ORDERED: Ketorolac 30 MG/ML VIAL ONE (09:57)
[2019-02-12] MEDS ORDERED: Dexamethasone 4 MG/ML VIAL ONE (09:57)
[2019-02-12] MEDS ORDERED: Lidocaine HCL 4 ML Topical Solution (Laryng-O-Jet Kit Sterile Pak) TP ONE (09:57)
[2019-02-12] MEDS ORDERED: CeFAZolin Syr 2,000MG/20 ML 2,000 MG/20 ML SYRINGE IVPB ONE (09:57)
[2019-02-12] MEDS ORDERED: Ondansetron 4 MG/2 ML VIAL ONE (09:57)
[2019-02-12] MEDS ORDERED: Albuterol 2.5 MG/3 ML NEBULIZER IH ONE (09:57)
[2019-02-12] MEDS ORDERED: Ringers Solution, Lactated 1,000 ML IVC SCH ×2 (10:00→14:59)
--- NOTE | 2019-02-12 10:22 | History & Physical Report ---
Date of Encounter: 02/12/19 Time of Encounter: 10:22 24 Hour HP Update - Instructions Instructions: If the History and Physical is less than 30 days old and was completed prior to A.M. admission and or procedure and has NOT been updated on calendar day of procedure please complete this update prior to performing procedure. - Update Patient reports changes in Medical Condition: No Changes in examination, assessment, or condition: No Changes in Medication: No Preop tests/diagnostics Reviewed: Yes Surgery Remains Indicated: Yes Consent for Planned Operative Procedure(s) Verified: Yes - Pre-Operative Checklist Preoperative Checklist Indicated: No Prophylactic Antibiotic Ordered: Yes Is VTE Prophylaxis Indicated?: Yes
--- NOTE | 2019-02-12 10:36 | Anesthesia Evaluation PreOp ---
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) Other Medical History: Diabetes Type II, Thyroid, GERD, Other (GROUND LEVEL FALL, COMMINUTED LEFT HUMERAL NECK FRACTURE) Anesthesia History: No Prior Anesthetic Complications, Past Anesthesia Alcohol Use: none Drug use: none Medications and Allergies Calcium Carbonate/Vitamin D3 [Calcium 500 mg Chewable Tablet] 500 mg PO BID 05/06/15 [History] Citalopram Hydrobromide [Citalopram HBr] 40 mg PO DAILY 05/06/15 [History] Omeprazole [PriLOSEC] 20 mg PO BID PRN 05/06/15 [History] Gabapentin [Neurontin] 300 mg PO TID 04/01/16 [History] Meloxicam [Mobic] 15 mg PO DAILY 11/05/18 [History] Zolpidem [Ambien] 2.5 mg PO HS 11/05/18 [History] Aspirin [Lo-Dose Aspirin EC] 81 mg PO QAM 02/12/19 [History] Cyclobenzaprine HCl 10 mg PO BID PRN 02/12/19 [History] Diclofenac Sodium 1 - 2 gm TP QID PRN 02/12/19 [History] Empagliflozin [Jardiance] 10 mg PO QAM 02/12/19 [History] Levothyroxine Sodium [Levoxyl] 112 mcg PO QAM 02/12/19 [History] OxyCODONE/APAP 5/325 [Percocet 5/325 MG] 1 - 2 each PO Q6-8H PRN 02/12/19 [History] Tizanidine HCl 4 mg PO BID PRN 02/12/19 [History] Tramadol HCl [Ultram] 50 mg PO TID PRN 02/12/19 [History] Allergy/AdvReac Type Severity Reaction Status Date / Time codeine AdvReac Pankaj Cardenas Verified 02/12/19 10:36 ing pravastatin AdvReac Muscle Pain Verified 02/12/19 10:36 - Meds/Allergy Pre-op Review Medications Reviewed: Yes Allergies Reviewed: Yes Beta Blockers on Current Med List: No Anesthesia Exam Vital Signs/O2 Sat/Glucose, Most Recent Temp Pulse Resp BP Pulse Ox 97.9 F 69 18 107/97 100 02/12/19 10:21 02/12/19 10:21 02/12/19 10:21 02/12/19 10:21 02/12/19 10:21 Blood glucose: 151 Weight: 88 KG - BMI 35 NPO (# of Hours): 8 - HEENT Mallampati: I Teeth: Edentulous - Cardiac Rhythm: Regular - Pulmonary Breath Sounds: bilateral Clear Anesthesia Assess/Plan ASA Score: 3 Anesthetic Plan: General, Regional Nerve Block Monitoring Plan: Standard Monitors Recovery Plan: PACU
[2019-02-12] MEDS ORDERED: Acetaminophen IV 1,000 MG/100 ML INFUS..BTL IVPB ONE (10:43)
[2019-02-12] MEDS ORDERED: Ketorolac 30 MG/ML VIAL IVP ONE (10:43)
[2019-02-12] MEDS ORDERED: traMADol 50 MG TABLET PO ONE (10:43)
[2019-02-12] MEDS ORDERED: *HR* Labetalol 20 MG/4 ML SYRINGE IVP PRN (10:44)
[2019-02-12] MEDS ORDERED: *HR* Promethazine 25 MG/ML VIAL IVP PRN (10:44)
[2019-02-12] MEDS ORDERED: *HR* OxyCODONE Immed Rel 5 MG TABLET PO PRN ×2 (10:44→14:59)
[2019-02-12] MEDS ORDERED: *HR* HYDROmorphone (PF) 1 MG/ML SYRINGE IVP PRN (10:44)
[2019-02-12] MEDS ORDERED: Ondansetron 4 MG/2 ML VIAL IVP ONE (10:44)
[2019-02-12] MEDS ORDERED: *HR* Midazolam HCl 2 MG/2 ML VIAL IVP PRN (10:44)
[2019-02-12] MEDS ORDERED: ROPIVACAINE/PF/NS 0.25% 1 EACH SYRINGE INTRAART ONE (12:16)
[2019-02-12] MEDS ORDERED: Ropivacaine/PF 0.5% 30 ML VIAL ONE (12:16)
[2019-02-12] MEDS ORDERED: Ethanol\\Acetic Acid\\Na Ace\\Ben 1,000 ML IRRIG.SOLN IR ONE (12:40)
--- NOTE | 2019-02-12 12:44 | Anesthesia Procedures ---
Date of Encounter: 02/12/19 Time of Encounter: 11:35 Procedures: Anesthesia - Nerve Block Procedure Date: 02/12/19 Time: 11:35 Surgical Procedure: Left TSR Checklist: Correct Patient Identifier, Correct procedure, History checked Correct side: Left Blood Thinner: No Monitor Applied: EKG, BP, Pulse Oximetry Supplemental Oxygen via Nasal Cannula (L/min): 2 Sedation: Versed (mg): 2 Sedation: Fentanyl (mcg): 100 Indication: Post Op Analgesia (per lyons) Pre-op Neuro Deficits: No Block Type: Supraclavicular, Other (scp, icb) Catheter placed: No Sterile Technique: Yes Ultrasound used: Yes Anatomy identified: Yes Visual spread of Local: Yes Neuro Stimulation: No Blood on Needle Aspiration: No Smooth Injection of Local: Yes Pain with Injection of Local: No Prep: Chlorhexadine Needle: 22 x 50 mm Stimuplex Local: Ropivacaine (30cc 0.5% with 8mg decadron supraclav., 5cc 0.25% scp, 15cc 0.25% icb) Volume (cc): 30, 5, 15 Number of Attempts: 1 Complications: None/effective block Vitals: Vital Signs/O2 Sat/Glucose, Most Recent Temp Pulse Resp BP Pulse Ox 97.9 F 69 16 117/62 98 02/12/19 12:32 02/12/19 12:41 02/12/19 12:41 02/12/19 12:41 02/12/19 12:41 Blood Glucose* 151 Comments: [facility]
[2019-02-12] MEDS ORDERED: EPHEDrine 50 MG/ML VIAL ONE (13:18)
--- NOTE | 2019-02-12 13:54 | Orthopedic Operative Note ---
Date of procedure: 02/12/19 Pre-op diagnosis: Displaced left proximal humerus fracture Post-op diagnosis: same Procedure: Procedure: Reverse total shoulder replacment, left Estimated blood loss: 200 cc Hardware: Metal and polyethylene replacement Arthrex 24, +4, 30 mm screw denis oid baseplate: , 4 locking 5.5 screws. 2+4 glenosphere: , humeral stem: 7 , 3 poly insert: 2 cerclage fiber tapes Procedural Notes: Displaced place comminuted proximal humerus fracture Operative procedure: The patient was brought to the operating room and placed on the operating room table. After general anesthesia was administered the operative shoulder was examined. Findings were noted. The patient was placed in the modified beachchair position. All pressure points were padded appropriately. And the head was stabilized in the neutral position. The operative extremity was prepped and draped in the sterile surgical fashion. The patient received IV antibiotics prior to skin incision. A standard deltopectoral approach was made to the operative shoulder. Incision was made to the skin and subcutaneous tissue,hemo stasis was obtained with Bovie cautery. Using careful blunt dissection the cephalic vein was identified and mobilized medially. The deltopectoral interval was developed and the clavipectoral fascia was incised. The lesser tuberosity was identified and tagged with 2 #2 fiber loops and 2 #2 FiberWire suture. The greater tuberosity was identified and tagged with 2, #2 FiberWire suture and 2 cerclage fiber tapes. The humeral head was removed. Anterior and posterior Bankart retractors were placed to expose the glenoid. The glenoid guide was seated and the centering hole was made. It was reamed with the appropriate reamer. The baseplate was seated and secured with 4 locking 5.5 screws and the central screw was 30 mm in length The baseplate was irrigated and dried and the appropriate 42+4 sphere was seated and secured with the Cali taper. The Cali taper was tested and found to be secure the humerus was redislocated and prepared with the diaphyseal reamers, followed by a broaching process up to the appropriate size 7 in 20 degrees of retro-version. Trial reduction found the shoulder to be relocatable. Trial components were removed. The real humeral component was impaced in place in 20 degrees of retroversion. Trial reduction found the shoulder to be relocatable and stable with the appropriate 3 Meghna Trial component was removed and the real implant was seated and secured the shoulder was reduced. The shoulder had excellent motion and excellent stability and no evidence of dislocation. The greater tuberosity was reduced and repaired to the implant with 2 cerclage fiber tapes. the lesser tuberosity was reduced and repaired to this construct with 2 #5 fiberwire sutures. The PA close the shoulder. The deep tissue was irrigated with pulse irrigation. The deltopectoral interval was closed with a running #1 PDS suture, subcutaneous tissue was irrigated and closed with 0 PDS suture, the skin was closed with Dermabond. The patient was placed in a sterile dressing, abduction brace and extubated. The patient was then transferred to the recovery room in stable condition. Anesthesia: GETA Surgeon: Kirill Bal Was there an procurement assistant present: Yes Director Of Collections: Aquilino Nath Estimated blood loss (cc): 300 Condition: stable Disposition: PACU
[2019-02-12 14:49] LABS: Hematocrit 37.8 % (35.3-44.9); Hemoglobin 11.9 g/dL (11.5-15.4)
[2019-02-12] MEDS ORDERED: Temazepam 15 MG CAPSULE PO PRN (14:59)
[2019-02-12] MEDS ORDERED: Ondansetron 4 MG/2 ML VIAL IVP PRN (14:59)
[2019-02-12] MEDS ORDERED: Sennosides 8.6 MG TABLET PO PRN (14:59)
[2019-02-12] MEDS ORDERED: *HR* OxyCODONE/APAP 5/325 TABLET PO PRN (14:59)
[2019-02-12] MEDS ORDERED: MOM Conc 10 ML UD.LIQ PO PRN (14:59)
[2019-02-12] MEDS ORDERED: traMADol 50 MG TABLET PO PRN ×2 (14:59)
--- NOTE | 2019-02-12 15:00 | Anesthesia Evaluation Post Op ---
Date of Encounter: 02/12/19 Time of Encounter: 14:59 - Vital Signs Vital Signs: Vital Signs/O2 Sat, Most Current Temp Pulse Resp BP Pulse Ox 97.3 F L 63 16 108/58 94 02/12/19 14:40 02/12/19 14:40 02/12/19 14:40 02/12/19 14:40 02/12/19 14:40 - Lungs Lungs: Clear Ascult./Percussion - Airway Airway: Non-obstructed - Cardiovascular Regular Rate, Baseline Rhythm - Mental Status Mental Status: Alert & Oriented, Answers Appropriately - Pain Pain Scale: 0 - Nausea Vomiting Nausea Vomiting: Not Present - Discharge PostOp Status: Transfer Patient to floor
--- NOTE | 2019-02-12 17:17 | Physician Discharge Referral ---
<Kirill Bal - Last Filed: 02/19/19 15:18> Home Health/Hosp Referral Info Transfer to: Home Health - Respiratory Orders Smoking Cessation: Smoking cessation has been advised. For more information, call the [place] Tobacco Quit Line at 9-657-XECP-NOW. - Transfer Medications Prescriptions: Docusate [Colace] 100 mg PO BID 5 Days #10 capsule Acetaminophen [Pain Relief] 500 mg PO Q6H 7 Days #28 tablet OxyCODONE Immed Rel [Roxicodone 5 MG] 5 mg PO Q6HR PRN 3 Days #12 tablet PRN Reason: Severe Pain Home Medications: Calcium Carbonate/Vitamin D3 [Calcium 500 mg Chewable Tablet] 500 mg PO BID 05/06/15 [History] Citalopram Hydrobromide [Citalopram HBr] 40 mg PO QAM 05/06/15 [History] Omeprazole [PriLOSEC] 20 mg PO BID PRN 05/06/15 [History] Gabapentin [Neurontin] 300 mg PO BID 04/01/16 [History] Meloxicam [Mobic] 15 mg PO QAM 11/05/18 [History] Zolpidem [Ambien] 2.5 mg PO HS PRN 11/05/18 [History] Acetaminophen [Pain Relief] 500 mg PO Q6H 7 Days #28 tablet 02/12/19 [Rx] Aspirin [Lo-Dose Aspirin EC] 81 mg PO QAM 02/12/19 [History] Cyclobenzaprine HCl 10 mg PO BID PRN 02/12/19 [History] Diclofenac Sodium 1 - 2 gm TP QID PRN 02/12/19 [History] Docusate [Colace] 100 mg PO BID 5 Days #10 capsule 02/12/19 [Rx] Empagliflozin [Jardiance] 10 mg PO QAM 02/12/19 [History] Levothyroxine Sodium [Levoxyl] 112 mcg PO QAM 02/12/19 [History] OxyCODONE Immed Rel [Roxicodone 5 MG] 5 mg PO Q6HR PRN 3 Days #12 tablet 02/12/19 [Rx] OxyCODONE/APAP 5/325 [Percocet 5/325 MG] 1 - 2 each PO Q6-8H PRN 02/12/19 [History] Tizanidine HCl 4 mg PO BID PRN 02/12/19 [History] Tramadol HCl [Ultram] 50 mg PO TID PRN 02/12/19 [History] Allergies/Adverse Reactions: Allergy/AdvReac Type Severity Reaction Status Date / Time codeine AdvReac Pankaj Cardenas Verified 02/12/19 10:36 ing pravastatin AdvReac Muscle Pain Verified 02/12/19 10:36 Certification: Further, I certify that my clinical findings support that this patient is homebound (i.e. absences from home require considerable and taxing effort and are for medical reasons or baptism services or infrequently or short duration when for other reasons) because: Homebound Reason: Patient requires assistance of a person or device to safely leave home Attestation: My signature below is to certify that this patient is under my care and that I, or nurse practitioner, or a physician's health care legal assistant working with me, has a [id number] encounter with this patient. <Tomeka Rose E - Last Filed: 02/20/19 07:48> Home Health/Hosp Referral Info Transfer to: Home Health Attending Provider: Dr. Kirill Bal - Diagnosis (1) Left humeral fracture Priority: Primary Status: Acute (2) Status post total replacement of left shoulder Priority: Primary Status: Acute (3) COPD (chronic obstructive pulmonary disease) Priority: Secondary Status: Chronic (4) Diabetes mellitus Priority: Secondary Status: Chronic (5) GERD (gastroesophageal reflux disease) Priority: Secondary Status: Chronic (6) HLD (hyperlipidemia) Priority: Secondary Status: Chronic (7) History of DVT (deep vein thrombosis) Priority: Secondary Status: Chronic (8) Hypothyroid Priority: Secondary Status: Chronic (9) TONNY (obstructive sleep apnea) Priority: Secondary Status: Chronic (10) Tobacco use Priority: Secondary Status: Chronic - Respiratory Orders Smoking Cessation: Smoking cessation has been advised. For more information, call the [place] Tobacco Quit Line at 2-222-PUSR-NOW. - Diet/Nutrition Diet/Nutrition Orders: Regular - Activity Activity Orders: Up ad machelle, Ambulate - Services Needed Following services are medically necessary services: Nursing, Home Health Aide, Physical Therapy, Occupational Therapy Home Care Orders: NO SHOULDER MOTION PT/OT. NWB to affected upper extremity. Stay in brace - remove for hygiene only ICE and elevate extremity frequently throughout the day. Opsite placed. Keep dressing intact until first follow up appointment. If greater than 50% saturated, notify office, remove dressing and place appropriate dressing back in place. Leave Zipline intact. Opsite dressing is water resistant, not water-proof. OK to shower, but do not get dressing wet. Certification: Further, I certify that my clinical findings support that this patient is homebound (i.e. absences from home require considerable and taxing effort and are for medical reasons or baptism services or infrequently or short duration when for other reasons) because: Homebound Reason: Post-surgery restriction and or conditions limit ability to leave home Attestation: My signature below is to certify that this patient is under my care and that I, or nurse practitioner, or a physician health care legal assistant working with me, has a [id number] encounter with this patient.
[2019-02-12] MEDS ORDERED: *HR* Enoxaparin 30 MG/0.3 ML SYRINGE SQ SCH ×2 (18:00)
[2019-02-12 18:36] VITALS: BP 97/62
--- NOTE | 2019-02-12 18:42 | Discharge Summary ---
<Aquilino Nath M - Last Filed: 02/12/19 18:39> Orders not resulted at time of discharge: Pending orders 02/12/19 13:53 Surgical Pathology [PTH] Routine Date of Encounter: 02/12/19 - Discharge Diagnosis (1) Humeral head fracture Priority: Primary Status: Acute Qualifiers: Encounter type: initial encounter Fracture type: closed Laterality: left Qualified Code(s): S42.292A - Other displaced fracture of upper end of left humerus, initial encounter for closed fracture - Hospital Course Hospital course: Ms. Olmstead is a 63 year old female - Time Spent with Patient Total time spent providing and/or coordinating discharge services: - Discharge Medications Prescriptions: New Docusate [Colace] 100 mg PO BID 5 Days #10 capsule Acetaminophen [Pain Relief] 500 mg PO Q6H 7 Days #28 tablet OxyCODONE Immed Rel [Roxicodone 5 MG] 5 mg PO Q6HR PRN 3 Days #12 tablet PRN Reason: Severe Pain Continued Calcium Carbonate/Vitamin D3 [Calcium 500 mg Chewable Tablet] 500 mg PO BID Citalopram Hydrobromide [Citalopram HBr] 40 mg PO QAM Omeprazole [PriLOSEC] 20 mg PO BID PRN PRN Reason: Heartburn Gabapentin [Neurontin] 300 mg PO BID Meloxicam [Mobic] 15 mg PO QAM Zolpidem [Ambien] 2.5 mg PO HS PRN PRN Reason: Sleep Aspirin [Lo-Dose Aspirin EC] 81 mg PO QAM Cyclobenzaprine HCl 10 mg PO BID PRN PRN Reason: Muscle Spasm Diclofenac Sodium 1 - 2 gm TP QID PRN PRN Reason: Pain Empagliflozin [Jardiance] 10 mg PO QAM Levothyroxine Sodium [Levoxyl] 112 mcg PO QAM OxyCODONE/APAP 5/325 [Percocet 5/325 MG] 1 - 2 each PO Q6-8H PRN PRN Reason: pain Tizanidine HCl 4 mg PO BID PRN PRN Reason: Muscle Spasm Tramadol HCl [Ultram] 50 mg PO TID PRN PRN Reason: Pain Home Medications: Calcium Carbonate/Vitamin D3 [Calcium 500 mg Chewable Tablet] 500 mg PO BID 05/06/15 [History] Citalopram Hydrobromide [Citalopram HBr] 40 mg PO QAM 05/06/15 [History] Omeprazole [PriLOSEC] 20 mg PO BID PRN 05/06/15 [History] Gabapentin [Neurontin] 300 mg PO BID 04/01/16 [History] Meloxicam [Mobic] 15 mg PO QAM 11/05/18 [History] Zolpidem [Ambien] 2.5 mg PO HS PRN 11/05/18 [History] Acetaminophen [Pain Relief] 500 mg PO Q6H 7 Days #28 tablet 02/12/19 [Rx] Aspirin [Lo-Dose Aspirin EC] 81 mg PO QAM 02/12/19 [History] Cyclobenzaprine HCl 10 mg PO BID PRN 02/12/19 [History] Diclofenac Sodium 1 - 2 gm TP QID PRN 02/12/19 [History] Docusate [Colace] 100 mg PO BID 5 Days #10 capsule 02/12/19 [Rx] Empagliflozin [Jardiance] 10 mg PO QAM 02/12/19 [History] Levothyroxine Sodium [Levoxyl] 112 mcg PO QAM 02/12/19 [History] OxyCODONE Immed Rel [Roxicodone 5 MG] 5 mg PO Q6HR PRN 3 Days #12 tablet 02/12/19 [Rx] OxyCODONE/APAP 5/325 [Percocet 5/325 MG] 1 - 2 each PO Q6-8H PRN 02/12/19 [History] Tizanidine HCl 4 mg PO BID PRN 02/12/19 [History] Tramadol HCl [Ultram] 50 mg PO TID PRN 02/12/19 [History] Allergies/Adverse Reactions: Allergy/AdvReac Type Severity Reaction Status Date / Time codeine AdvReac HivrenettaSwell Verified 02/12/19 10:36 ing pravastatin AdvReac Muscle Pain Verified 02/12/19 10:36 Date of admission: 02/12/19 14:52 Primary care physician: PCP NONE Consults: 02/12/19 14:59 Consult to Occupational Therapy [CONS] Routine Comment: post shoulder surgery Reason for Consult: post shoulder surgery Does patient have active BEDREST order?: No Is patient medically & hemodynamically stable?: Yes Consult to Physical Therapy [CONS] Routine Comment: post shoulder surgery Reason for Consult: post shoulder surgery Does patient have active BEDREST order?: No Is patient medically & hemodynamically stable?: Yes Consult to Hand Miter Operator [CONS] Routine Reason for SW Consult: shoulder surgery RT Post Op Consult [CONS] Routine Labs on day of discharge: Labs from last 24 hours 02/12/19 02/12/19 14:35 10:45 Hgb 11.9 Hct 37.8 POC Glucose 151 H - Impressions ITS Impressions Shoulder X-Ray 02/12/19 01:00 IMPRESSION: 1. Left shoulder arthroplasty is normal in position. 2. Comminuted, nondisplaced periprosthetic fracture of the proximal humerus. D/ / 02/12/2019 14:40:28 Bar Sheikh MD / [email or web address] Interpreting Provider: Bar Sheikh MD - Patient Status Disposition: Home Health Service Condition: Good - Discharge Instructions Follow Up With: NONE,PCP [Primary Care Provider] - Additional Instructions: Discharge Instructions: Total Shoulder Please call [facility] ([phone]), your Primary Care Physician, or report to the Emergency Room if you have any of the following symptoms: Nausea, vomiting, fever greater that 101.5, swelling, chest pain, shortness of breath, increased pain/redness/drainage/odor for your incision site, numbness/tingling, or any other concerning symptoms. ACTIVITY: Always keep your arm in the sling. Do not raise your arm away from your body. Do not use your arm to help with getting in or out of bed. No weight bearing permitted. Only perform those exercises given to you by your therapist. Incentive Spirometer 10 times an hour. MEDICATIONS: Upon discharge resume your home medications. Take all the medications as prescribed. Take a stool softener if taking narcotic pain medications. Stool softeners are only effective if you drink enough fluids. Drink 6-8 glass of water or fluids a day, unless this is not allowed for another health problem. Despite using stool softeners, if you haven't had a bowel movement in 3 days, please switch to a gentle laxative. Gentle laxatives are sold over the counter. You should have a bowel movement within 24 hours, if not call the office. You will be discharged from the hospital with a prescription for pain medication. You are encouraged to decrease the use of narcotic pain medication as tolerated. Should you require a refill, please call the office. [facility] prescribes narcotic pain medication for only 4-6 weeks after surgery. If you require pain medication beyond this time period, you may be referred to your Primary Care Physician or to the Pain Clinic for further evaluation. Plan ahead for refills on pain medication as many narcotics either need to be picked up at the office or mailed. It is best to call 48-72 hours in advance of needing a prescription refill so you don't run out of medication. To help control the post-operative pain, you may take NSAIDs (Aleve,Advil, Motrin, Ibuprofen, Naprosyn) or Tylenol as prescribed on the bottle in addition to the pain medication. WOUND CARE: Leave the dressing on for 7-10 days. You may change the dressing if it becomes saturated greater than 50%. Do not get the dressing wet at anytime. Wash your hands with antibacterial soap, rinse and dry prior to any wound care. If you have corbin the visiting nurse or rehab facility can remove the stapes 10-14 days after surgery and place steri-strips across the wound. Leave the steri-strips in place until they fall off on their own. You may let water from the shower run on top of the steri-strips. If you do not have a visiting nurse or rehab facility, you will need to return to the office at 10-14 days for the corbin to be removed. If you have itching or redness around the dressing call the office. FOLLOW-UP: Please follow up with your surgeon in the orthopedic clinic, as scheduled <Kirill Bal - Last Filed: 02/19/19 15:17> Date of Encounter: 02/19/19 Time of Encounter: 15:18 - Hospital Course Hospital course: Ms. Olmstead is a 63 year old female Patient discharged home same day in stable condition - Time Spent with Patient Total time spent providing and/or coordinating discharge services: Date of admission: 02/12/19 14:52 Primary care physician: PCP NONE Consults: 02/12/19 14:59 Consult to Occupational Therapy [CONS] Routine Comment: post shoulder surgery Reason for Consult: post shoulder surgery Does patient have active BEDREST order?: No Is patient medically & hemodynamically stable?: Yes Consult to Physical Therapy [CONS] Routine Comment: post shoulder surgery Reason for Consult: post shoulder surgery Does patient have active BEDREST order?: No Is patient medically & hemodynamically stable?: Yes Consult to Hand Miter Operator [CONS] Routine Reason for SW Consult: shoulder surgery RT Post Op Consult [CONS] Routine - Impressions ITS Impressions Shoulder X-Ray 02/12/19 01:00 IMPRESSION: 1. Left shoulder arthroplasty is normal in position. 2. Comminuted, nondisplaced periprosthetic fracture of the proximal humerus. D/ / 02/12/2019 14:40:28 Bar Sheikh MD / bcarter Interpreting Provider: Bar Sheikh MD - Patient Status Functional capacity at discharge: independent ambulation <Tomeka Rose E - Last Filed: 02/20/19 07:43> Date of Encounter: 02/12/19 - Discharge Diagnosis (1) Left humeral fracture Priority: Primary Status: Acute Qualifiers: Encounter type: subsequent encounter Humerus Location: proximal Fracture type: closed Fracture morphology: unspecified fracture morphology Fracture healing: with routine healing Qualified Code(s): S42.202D - Unspecified fracture of upper end of left humerus, subsequent encounter for fracture with routine healing (2) Status post total replacement of left shoulder Priority: Primary Status: Acute (3) Diabetes mellitus Priority: Secondary Status: Chronic Qualifiers: Diabetes mellitus type: type 2 Diabetes mellitus retirement insulin use: unspecified long chain beamer insulin use status Diabetes mellitus complication status: with other specified complication Qualified Code(s): E11.69 - Type 2 diabetes mellitus with other specified complication (4) HLD (hyperlipidemia) Priority: Secondary Status: Chronic Qualifiers: Hyperlipidemia type: unspecified Qualified Code(s): E78.5 - Hyperlipidemia, unspecified (5) COPD (chronic obstructive pulmonary disease) Priority: Secondary Status: Chronic Qualifiers: COPD type: unspecified COPD Qualified Code(s): J44.9 - Chronic obstructive pulmonary disease, unspecified (6) GERD (gastroesophageal reflux disease) Priority: Secondary Status: Chronic Qualifiers: Esophagitis presence: esophagitis presence not specified Qualified Code(s): K21.9 - Gastro-esophageal reflux disease without esophagitis (7) TONNY (obstructive sleep apnea) Priority: Secondary Status: Chronic (8) History of DVT (deep vein thrombosis) Priority: Secondary Status: Chronic (9) Tobacco use Priority: Secondary Status: Chronic - Hospital Course Hospital course: Ms. Olmstead is a 63 year old female The patient's postoperative course was uneventful. Progressed from intravenous analgesic needs to oral analgesic needs only. Remained neurovascularly intact and mobilized satisfactorily. All radiographic studies were satisfactory. Patient course and disposition was followed by Dr. Bal. Patient seen by Dr. Bal as discharging physician on this day. Patient is discharged with plan for rehabilitation and outpatient orthopedic follow up has been arranged. - Time Spent with Patient Total time spent providing and/or coordinating discharge services: Date of admission: 02/12/19 14:52 Primary care physician: PCP NONE Consults: 02/12/19 14:59 Consult to Occupational Therapy [CONS] Routine Comment: post shoulder surgery Reason for Consult: post shoulder surgery Does patient have active BEDREST order?: No Is patient medically & hemodynamically stable?: Yes Consult to Physical Therapy [CONS] Routine Comment: post shoulder surgery Reason for Consult: post shoulder surgery Does patient have active BEDREST order?: No Is patient medically & hemodynamically stable?: Yes Consult to Hand Miter Operator [CONS] Routine Reason for SW Consult: shoulder surgery RT Post Op Consult [CONS] Routine Discharging clinician: Kirill Bal Anticipated date of discharge: 02/13/19 - VTE Documentation of Mechanical Device: Venous foot pump, device - Impressions ITS Impressions Shoulder X-Ray 02/12/19 01:00 IMPRESSION: 1. Left shoulder arthroplasty is normal in position. 2. Comminuted, nondisplaced periprosthetic fracture of the proximal humerus. D/ / 02/12/2019 14:40:28 Bar Sheikh MD / bcarter Interpreting Provider: Bar Sheikh MD - Patient Status Functional capacity at discharge: independent ambulation Overall status at discharge: patient is progressing back to baseline - Diet and Activity Activity: as per physical therapy Diet: advance to your usual diet
[2019-02-12] MEDS ORDERED: Gabapentin 300 MG CAPSULE PO SCH (21:00)
[2019-02-13] MEDS ORDERED: Cholecalciferol (D-3) 1,000 UNIT (25MCG) TABLET PO SCH (09:00)
[2019-02-13] MEDS ORDERED: (Empagliflozin [Jardiance] 10 MG) PO SCH (09:00)
[2019-02-13] MEDS ORDERED: Aspirin Enteric Coated 81 MG Tablet PO SCH (09:00)
== END 2019-02-12 20:33 | disposition home health service (06) | DRG 483 ==
LOC: SAMDAY 09:32 → 3NENU 14:52
PROVIDERS: ADMIT Orthopaedic Surgery; ATTEND Orthopaedic Surgery